=== PATIENT | female | born 1945 | race Caucasian/White ===

== ENCOUNTER 2021-05-24 14:45 | Inpatient (IN) ==
--- NOTE | 2021-05-24 15:39 | DR.GENAD ---
HPI Time Seen Time Seen by Provider: 05/24/21 15:30 PCP Primary Care Physician: KHLOE HPI Comment HPI Comment: Third ER visit after being diagnosed initially with "bronchitis" and covid pcr done in [place]; went back to [place] where diagnosis of "covid pn eumonia" made with CT two days ago and given omnicef, steroids, inhalers and pepcid and sent home where she has progressively worsened as below with confusion and sob; no abd pain, n/v/d. Complaint/Symptoms Chief Complaint:: PATIENT WAS BROUGHT TO ER FOR COVID WORSENING, INCREASED SOB. WAS SEEN IN ER 2 DAYS AGO IN [place]. WAS SEEN 1 WEEK AGO AND DX WITH COVID. COVID-19 Coronavirus risk:travel/contact w/high risk person: Yes Has patient experienced Coronavirus symptoms: Yes Coronavirus symptoms experienced: Shortness of Breath Mode of Arrival Mode of Arrival: Wheelchair Timing Onset of Chief Complaint: 05/17/21 PMH PMH Past Medical History: Yes Past Medical History: Coronary Artery Disease, Hypertension and Seizures Past Medical History Comment: ENLARGED HEART Past Surgical History: Yes Past Surgical History Comment: RIGHT FEMUR Travel Risk Coronavirus risk:travel/contact w/high risk person: Yes Has patient experienced Coronavirus symptoms: Yes Coronavirus symptoms experienced: Shortness of Breath Infectious screening In the last 2 months have you had wt loss of >10#?: NO Have you had fever, night sweats or hemotysis?: No Have you traveled outside the country in the last 6 months?: No Isolation: Droplet ROS Review of Systems Eyes: No Symptoms Reported ENTM: No Symptoms Reported Cardiovascular: No Symptoms Reported Gastrointestinal/Abdominal: No Symptoms Reported Genitourinary: No Symptoms Reported Musculoskeletal: No Symptoms Reported Integumentary: No Symptoms Reported Hematologic/Lymphatic: No Symptoms Reported Endocrine: No Symptoms Reported Psychiatric: No Symptoms Reported PE Vital Signs Vitals: Temperature 97.9 F Pulse Rate 88 Respiratory Rate 28 Blood Pressure 95/61 O2 Sat by Pulse Oximetry 94 General Limitations: No Limitations General Appearance: Alert and In No Apparent Distress Head Head Exam: Normal Inspection Eyes Eye exam: Normal Appearance Neck Neck Exam: Normal Inspection Chest Chest Inspection: Normal Inspection Respiratory Respiratory Exam: Normal Lung Sounds Bilat Respiratory Exam: Bilateral: Clear to Auscultation Cardiovascular Cardiovascular Exam: Regular Rate and Normal Rhythm Abdominal Exam Abdominal Exam: Normal Inspection, Normal Bowel Sounds and Soft Extremities Extremities Exam: Normal Inspection Back Back Exam: Normal Inspection Neurologic Neurological Exam: Other (somnolent, grunts with occasional monosyllabic answers) Skin Skin Exam: Warm, Dry, Intact and Normal Color MDM Differential Diagnosis Differential Diagnosis: covid pneu, pe, sepsis COURSE Treatment Treatment: advised pt she will be admitted; nurse called son Consultation Call Returned: 18:50 (Dr Rossi accepts admission.) ROR Labs Reviewed Laboratory Results Reviewed?: Yes Result Diagrams: 05/24/21 15:51 05/24/21 15:51 Laboratory: WBC 4.9 X10^3/uL (3.6-10.0) 05/24/21 15:51 RBC 5.06 X10^6/uL (3.5-5.4) 05/24/21 15:51 Hgb 15.7 g/dL (12.0-16.0) 05/24/21 15:51 Hct 44.9 % (36.0-47.0) 05/24/21 15:51 MCV 88.9 fL (80.0-100.0) 05/24/21 15:51 MCH 31.1 pg (27.0-34.0) 05/24/21 15:51 MCHC 35.0 g/dL (33.0-35.0) 05/24/21 15:51 RDW 13.2 % (11.6-16.5) 05/24/21 15:51 Plt Count 95 X10^3/uL (150.0-450.0) L 05/24/21 15:51 MPV 9.4 fL (7.4-11.0) 05/24/21 15:51 Neut % (Auto) 67.8 % (42.0-75.0) 05/24/21 15:51 Lymph % (Auto) 19.1 % (21.0-51.0) L 05/24/21 15:51 [place] % (Auto) 12.6 % (0.0-13.0) 05/24/21 15:51 Eos % (Auto) 0.0 % (0.9-2.9) L 05/24/21 15:51 Baso % (Auto) 0.5 % (0.2-1.0) 05/24/21 15:51 Neut # (Auto) 3.3 x10^3/uL (2.2-4.8) 05/24/21 15:51 Lymph # (Auto) 0.9 X10^3/uL (1.3-2.9) L 05/24/21 15:51 [place] # (Auto) 0.6 x10^3/uL (0.3-0.8) 05/24/21 15:51 Eos # (Auto) 0.0 x10^3/uL (0.0-0.2) 05/24/21 15:51 Baso # (Auto) 0.0 X10^3/uL (0.0-0.1) 05/24/21 15:51 Absolute Nucleated RBC 0.8 /100WBC 05/24/21 15:51 D-Dimer 1.92 ug/ml (0.0-0.57) H* 05/24/21 15:51 Sample Site Rra 05/24/21 16:05 ABG pH 7.500 (7.35-7.45) H 05/24/21 16:05 ABG pCO2 40.0 mmHg (35.0-45.0) 05/24/21 16:05 ABG pO2 47.0 mmHg (80.0-100.0) L* 05/24/21 16:05 ABG HCO3 31.2 mmol/L (22-26) H* 05/24/21 16:05 ABG O2 Saturation 87.0 % (90-100) L 05/24/21 16:05 ABG Base Excess 7.4 mmol/L (-2.0-2.0) H 05/24/21 16:05 Kane Test Pos 05/24/21 16:05 A-a Gradient 53.0 mmHg 05/24/21 16:05 FiO2 21.0 05/24/21 16:05 Blood Gas Comments Pt soila well eb 05/24/21 16:05 Sodium 134 mmol/L (136-145) L 05/24/21 15:51 Corrected Sodium 136 mmol/L (136-145) 05/24/21 15:51 Potassium 3.1 mmol/L (3.5-5.1) L 05/24/21 15:51 Chloride 96 mmol/L (98-107) L 05/24/21 15:51 Carbon Dioxide 29.0 mmol/L (21-32) 05/24/21 15:51 BUN 23 mg/dL (7-18) H 05/24/21 15:51 Creatinine 1.03 mg/dL (0.55-1.02) H 05/24/21 15:51 Est GFR (MDRD) Af Amer > 60 (>60) 05/24/21 15:51 Est GFR (MDRD) Non-Af 55 (>60) L 05/24/21 15:51 Glucose 166 mg/dL (65-99) H 05/24/21 15:51 Calcium 7.6 mg/dL (8.5-10.1) L 05/24/21 15:51 Corrected Calcium 8.4 mg/dL (8.5-10.1) L 05/24/21 15:51 Magnesium 1.9 mg/dL (1.7-2.9) 05/24/21 15:51 Ferritin 1286 ng/mL (8-252) H 05/24/21 15:51 Total Bilirubin 0.30 mg/dL (0.2-1.0) 05/24/21 15:51 AST 75 Units/L (15-37) H 05/24/21 15:51 ALT 51 Units/L (12-78) 05/24/21 15:51 Alkaline Phosphatase 83 Units/L (46-116) 05/24/21 15:51 C-Reactive Protein 72.00 mg/L (0-3.0) H 05/24/21 15:51 B-Natriuretic Peptide 95.6 pg/mL (0-79) H 05/24/21 15:51 Total Protein 6.6 g/dL (6.4-8.2) 05/24/21 15:51 Albumin 3.0 g/dL (3.4-5.0) L 05/24/21 15:51 Globulin 3.6 g/dL (2.5-4.5) 05/24/21 15:51 Albumin/Globulin Ratio 0.8 Ratio (1.1-2.1) L 05/24/21 15:51 SARS CoV-2 RNA Rapid TITA Positive (NEGATIVE) A 05/24/21 17:26 XRAY XRAY Interpreted by: Radiologist X-ray Results: pcxr: Findings are consistent with the given history of a COVID- 19 respiratory infection. No significant change when compared to the previous exam given differences in the technique. chest ct: Severe emphysematous changes with stable superimposed multifocal pneumonia. No acute pulmonary embolism. Opioid Opioid Risk Tool Age (Bucky box if 16-45): No History of Preadolescent Sexual Abuse: No Total: 0 Total Score Risk Category: Low Risk Copyright: [facility] predicting aberrant behaviors Diagnosis Discharge Problem: Hypoxia, Hypokalemia, COVID-19 Sepsis Qualifiers: Sepsis type: sepsis due to unspecified organism Sepsis acute organ dysfunction status: with acute organ dysfunction Severe sepsis acute organ dysfunction type: acute respiratory failure Acute respiratory failure type: with hypoxia Severe sepsis shock status: without septic shock Qualified Code(s): A41.9 - Sepsis, unspecified organism Bilateral pneumonia Qualifiers: Pneumonia type: due to unspecified organism Lung location: lower lobe of lung Qualified Code(s): J18.9 - Pneumonia, unspecified organism Instructions Forms: [facility] Social Distancing
[2021-05-24 15:58] LABS: BASOPHILS % (AUTO) 0.5 % (0.2-1.0); HEMATOCRIT 44.9 % (36.0-47.0); HEMOGLOBIN 15.7 g/dL (12.0-16.0); LYMPHOCYTES # (AUTO) 0.9 X10^3/uL (1.3-2.9); LYMPHOCYTES % (AUTO) 19.1 % (21.0-51.0); MEAN CORPUSCULAR HEMOGLOBIN 31.1 pg (27.0-34.0); MEAN CORPUSCULAR VOLUME 88.9 fL (80.0-100.0); MEAN PLATELET VOLUME 9.4 fL (7.4-11.0); MONOCYTES # (AUTO) 0.6 x10^3/uL (0.3-0.8); MONOCYTES % (AUTO) 12.6 % (0.0-13.0); NEUTROPHILS # (AUTO) 3.3 x10^3/uL (2.2-4.8); NEUTROPHILS % (AUTO) 67.8 % (42.0-75.0); PLATELET COUNT 95 X10^3/uL (150.0-450.0); RED BLOOD COUNT 5.06 X10^6/uL (3.5-5.4); RED CELL DISTRIBUTION WIDTH 13.2 % (11.6-16.5); WHITE BLOOD COUNT 4.9 X10^3/uL (3.6-10.0)
[2021-05-24] MEDS ORDERED: NS 1000 ML 1,000 ML IV ONE (16:00)
[2021-05-24 16:08] LABS: ABG BASE EXCESS 7.4 mmol/L (-2.0-2.0)
[2021-05-24 16:10] LABS: ABG ALLEN TEST POS; ABG HCO3 31.2 mmol/L (22-26)
[2021-05-24 16:11] LABS: ALANINE AMINOTRANSFERASE 51 Units/L (12-78); ALKALINE PHOSPHATASE 83 Units/L (46-116); ASPARTATE AMINO TRANSFERASE 75 Units/L (15-37); BLOOD UREA NITROGEN 23 mg/dL (7-18); CALCIUM 7.6 mg/dL (8.5-10.1); CHLORIDE 96 mmol/L (98-107); COR CA(FOR HYPOALB) 8.4 mg/dL (8.5-10.1); COR NA(FOR HYPERGLY) 136 mmol/L (136-145); CREATININE 1.03 mg/dL (0.55-1.02); SODIUM 134 mmol/L (136-145); TOTAL PROTEIN 6.6 g/dL (6.4-8.2); eGFR NON BLACK RACES 55 (>60)
--- NOTE | 2021-05-24 16:16 | RAD ---
HISTORYCOVID, SOBSTUDYCHEST, 1 VIEWCOMPARISONChest radiograph, May 22, 2021TECHNIQUEChest radiographic imaging, AP portable projection, 1 imageFINDINGSNo cardiomegaly.Hazy bilateral diffuse airspace opacities; right greater than left.No pleural effusion.No pneumothorax.No acute osseous abnormality.IMPRESSIONFindings are consistent with the given history of a COVID-19 respiratory infection. No significant change when compared to the previous exam given differences in the technique.Electronically signed by: Dmitriy Perrin (May 24, 2021 16:14:09)
[2021-05-24] MEDS ORDERED: NS 1000 ML 1,000 ML ONE ×2 (16:47→19:08)
[2021-05-24] MEDS ORDERED: K-DUR TAB 20 MEQ PO STA (17:11)
[2021-05-24] MEDS ORDERED: K-DUR TAB 20 MEQ PO ONE (17:19)
[2021-05-24] MEDS ORDERED: NS 100 ML IV 100 ML ONE (17:34)
--- NOTE | 2021-05-24 18:38 | CT ---
HISTORY:Hypoxia, COVID-19, elevated D-dimerStudy: CTA chestComparison:CTA chest 2 days priorTechnique: Multiple axial images of the chest were obtained after the administration of IV contrast. 3D reconstructions were performed utilizing radial maximum intensity projection imaging. Dose reduction techniques including Automated Exposure Control (AEC) and adjustment of mA and kV were utilized.Findings:Contrast opacification of the pulmonary arteries is adequate to the level of the segmental branches. No evidence of acute pulmonary emboli. There is scattered calcified plaque coronary arteries. Heart size is normal. No pericardial effusion. There is a small sliding hiatal hernia. The aorta appears normal in course and caliber. Advanced centrilobular and paraseptal emphysematous changes are present. There are superimposed ground-glass infiltrates in the right upper and lower lobes subpleural regions both lung bases compatible with pneumonia. Overall findings felt to be stable. No effusion or pneumothorax. Airways are patient.There are chronic degenerative changes bony thorax compression deformity T8. The visualized portions of the upper abdomen are grossly unremarkable.IMPRESSION:Severe emphysematous changes with stable superimposed multifocal pneumonia.No acute pulmonary embolism.Electronically signed by: BRITTNEY STANLEY (May 24, 2021 18:36:48)
[2021-05-24] MEDS ORDERED: ZOSYN VIAL 3.375 GRAMS 3.375 G in NS 100 ML IV + SPIKE MINIBAG* 100 ML IV ONE (18:43)
[2021-05-24] MEDS ORDERED: SOLU-Medrol 125 MG VIAL IVP ONE (18:43)
[2021-05-24] MEDS ORDERED: SOLU-Medrol 125 MG VIAL ONE (19:01)
[2021-05-24] MEDS ORDERED: ZOSYN VIAL 3.375 GRAMS IV ONE (19:02)
[2021-05-24] MEDS ORDERED: NS 100 ML IV + SPIKE MINIBAG* 100 ML IV ONE (19:02)
[2021-05-24] MEDS: NS 1000 ML 1,000 ML IV SCH (19:10)
[2021-05-24] MEDS ORDERED: ZOFRAN INJ 4 MG VIAL IVP PRN (19:38)
[2021-05-24] MEDS ORDERED: TESSALON PERLES PO PRN (19:38)
[2021-05-24] MEDS ORDERED: TYLENOL 500 MG TAB EXTRA STRENGTH PO PRN ×2 (19:38→20:43)
[2021-05-24] MEDS ORDERED: ZOSYN VIAL 3.375 GRAMS 3.375 G in NS 100 ML IV + SPIKE MINIBAG* 100 ML IV SCH (19:39)
[2021-05-24] MEDS ORDERED: NS 1000 ML 1,000 ML IV SCH (20:00)
[2021-05-24] MEDS: BROVANA IN SCH (21:00)
[2021-05-24] MEDS: PULMICORT NEB TX 0.5 MG NEB SCH (21:00)
[2021-05-24] MEDS ORDERED: MELATONIN PO SCH (21:00)
[2021-05-24] MEDS: MELATONIN PO SCH (22:19)
[2021-05-24] MEDS: NORCURON INJ 10 MG VIAL 50 MG in NS 50 ML IV 50 ML IV PRN (23:00)
[2021-05-25] MEDS: TESSALON PERLES PO PRN ×2 (01:26→20:08)
[2021-05-25] MEDS: NYSTATIN POWDER TOP SCH ×3 (05:20→21:02)
[2021-05-25] MEDS: ZOSYN VIAL 3.375 GRAMS 3.375 G in NS 100 ML IV + SPIKE MINIBAG* 100 ML IV SCH ×3 (05:20→21:02)
[2021-05-25] MEDS: NS 1000 ML 1,000 ML IV SCH ×4 (06:20→20:07)
[2021-05-25] MEDS: PULMICORT NEB TX 0.5 MG NEB SCH ×2 (08:53→21:50)
[2021-05-25] MEDS: BROVANA IN SCH ×2 (08:53→21:50)
[2021-05-25] MEDS ORDERED: SOLU-Medrol 125 MG VIAL IVP SCH ×2 (09:00)
[2021-05-25] MEDS ORDERED: POTASSIUM CHL 60 MEQ/NS 0.45% 500 ML IV PRN (10:22)
[2021-05-25] MEDS ORDERED: K-DUR TAB 20 MEQ PO PRN (10:22)
[2021-05-25] MEDS ORDERED: POTASSIUM CHL 40 MEQ/NS 0.45% 500 ML IV PRN (10:22)
[2021-05-25] MEDS ORDERED: POTASSIUM CHLORIDE LIQ 20 MEQ UDC PO PRN (10:22)
[2021-05-25] MEDS ORDERED: MICRO K EXTEN CAP 10 MEQ PO PRN (10:22)
[2021-05-25] MEDS ORDERED: KLOR-CON PO PRN (10:22)
[2021-05-25] MEDS: BUTT CREAM (COMPOUND) TOP SCH ×2 (17:18→21:01)
[2021-05-25] MEDS: MAGNESIUM SULFATE 1 GRAM/100 mL PREMIX 1 GM/100 ML BAG IV PRN ×2 (17:37→18:52)
[2021-05-25] MEDS: LOVENOX INJ 30 MG SYR SC SCH (18:03)
[2021-05-25] MEDS: MELATONIN PO SCH (20:07)
--- NOTE | 2021-05-25 23:29 | DR.H&P ---
H&P History & Physical for Day of: H&P Date: 05/25/21 Allergies Allergies Allergy/AdvReac Type Severity Reaction Status Date / Time No Known Drug Allergies Allergy Unverified 05/24/21 15:36 History of Present Illness History of Present Illness: Pt is a 76 year old female with a past medical history of Hypertension, Seizures, CAD, presenting after being tested positive for COVID-19 in [place]. Pt was started outpatient on omnicef, steroids, inhalers, and pepcid. She reports for the past 2-3 days her symptoms of s hortness of breath have progressively worsened. In the ED she was found to be significantly hypoxic. Labs/imaging: Wbc 4.9, Hgb 15.7, Plt 95, Na 134, K 3.1, Creatinine 1.03, Glucose 166, CRP 72, BNP 95, COVID positive, D-dimer:1.92, ABG: pH 7.5, pCO2 40, pO2 47, HCO3 31, O2 sat 87% on RA. CXR: Findings are consistent with the given history of a COVID-19 respiratory infection. No significant change when compared to the previous exam given differences in the technique. CTA was obtained due to elevated D-dimer that revealed: Severe emphysematous changes with stable superimposed multifocal pneumonia. No acute pulmonary embolism. Pt was started on pneumonia protocol that includes: IVF NS@75ml/h, Remdesivir, Solumedrol 125mg q6h, scheduled Bronchodilators, Antibiotics: Zosyn, immune supporting supplements, supplemental O2, SSI, I/S, Respiratory therapy consult, Pneumonia protocol. Pt is currently utilizing 4L nasal cannula supplemental oxygen. Will restart home medications and wean/titrate supplemental oxygen as tolerated. Continue to closely monitor and follow up labs/imaging. Time spent on clinical assessment, reviewing labs and imaging, decision making, and documentation greater than 45 minutes. Past Medical History Past Medical History: Coronary Artery Disease, Hypertension and Seizures Past Surgical History Surgical History: Ortho Surgery Social History Alcohol Use: None Drug Use: None Medications Home Medications: No Known Drug Allergies Allergy (Unverified 05/24/21 15:36) CONTINUE taking the following medications amlodipine [Norvasc] 10 mg PO HS 05/24/21 [History] ascorbic acid (vitamin C) [Vitamin C] 250 mg PO DAILY 05/24/21 [History] aspirin [Ecotrin] 325 mg PO BID 05/24/21 [History] cholecalciferol (vitamin D3) [Vitamin D3] 125 mcg PO DAILY 05/24/21 [History] cyanocobalamin (vitamin B-12) [Vitamin B-12] 500 mcg PO DAILY 05/24/21 [History] famotidine [Pepcid] 40 mg PO BID 05/24/21 [History] hydrochlorothiazide 25 mg PO QAM 05/24/21 [History] meclizine 25 mg PO BID 05/24/21 [History] phenytoin sodium extended [Dilantin Extended] 300 mg PO QHS 05/24/21 [History] zinc sulfate 50 mg PO BID 05/24/21 [History] Labs Result Diagrams: 05/24/21 15:51 05/25/21 13:00 Labs: Laboratory WBC 4.9 X10^3/uL (3.6-10.0) 05/24/21 15:51 RBC 5.06 X10^6/uL (3.5-5.4) 05/24/21 15:51 Hgb 15.7 g/dL (12.0-16.0) 05/24/21 15:51 Hct 44.9 % (36.0-47.0) 05/24/21 15:51 MCV 88.9 fL (80.0-100.0) 05/24/21 15:51 MCH 31.1 pg (27.0-34.0) 05/24/21 15:51 MCHC 35.0 g/dL (33.0-35.0) 05/24/21 15:51 RDW 13.2 % (11.6-16.5) 05/24/21 15:51 Plt Count 95 X10^3/uL (150.0-450.0) L 05/24/21 15:51 MPV 9.4 fL (7.4-11.0) 05/24/21 15:51 Neut % (Auto) 67.8 % (42.0-75.0) 05/24/21 15:51 Lymph % (Auto) 19.1 % (21.0-51.0) L 05/24/21 15:51 [place] % (Auto) 12.6 % (0.0-13.0) 05/24/21 15:51 Eos % (Auto) 0.0 % (0.9-2.9) L 05/24/21 15:51 Baso % (Auto) 0.5 % (0.2-1.0) 05/24/21 15:51 Neut # (Auto) 3.3 x10^3/uL (2.2-4.8) 05/24/21 15:51 Lymph # (Auto) 0.9 X10^3/uL (1.3-2.9) L 05/24/21 15:51 [place] # (Auto) 0.6 x10^3/uL (0.3-0.8) 05/24/21 15:51 Eos # (Auto) 0.0 x10^3/uL (0.0-0.2) 05/24/21 15:51 Baso # (Auto) 0.0 X10^3/uL (0.0-0.1) 05/24/21 15:51 Absolute Nucleated RBC 0.8 /100WBC 05/24/21 15:51 D-Dimer 1.92 ug/ml (0.0-0.57) H* 05/24/21 15:51 Sample Site Rra 05/24/21 16:05 ABG pH 7.500 (7.35-7.45) H 05/24/21 16:05 ABG pCO2 40.0 mmHg (35.0-45.0) 05/24/21 16:05 ABG pO2 47.0 mmHg (80.0-100.0) L* 05/24/21 16:05 ABG HCO3 31.2 mmol/L (22-26) H* 05/24/21 16:05 ABG O2 Saturation 87.0 % (90-100) L 05/24/21 16:05 ABG Base Excess 7.4 mmol/L (-2.0-2.0) H 05/24/21 16:05 Kane Test Pos 05/24/21 16:05 A-a Gradient 53.0 mmHg 05/24/21 16:05 FiO2 21.0 05/24/21 16:05 Blood Gas Comments Pt soila well eb 05/24/21 16:05 Sodium 134 mmol/L (136-145) L 05/24/21 15:51 Corrected Sodium 136 mmol/L (136-145) 05/24/21 15:51 Potassium 3.9 mmol/L (3.5-5.1) 05/25/21 13:00 Chloride 96 mmol/L (98-107) L 05/24/21 15:51 Carbon Dioxide 29.0 mmol/L (21-32) 05/24/21 15:51 BUN 23 mg/dL (7-18) H 05/24/21 15:51 Creatinine 1.03 mg/dL (0.55-1.02) H 05/24/21 15:51 Est GFR (MDRD) Af Amer > 60 (>60) 05/24/21 15:51 Est GFR (MDRD) Non-Af 55 (>60) L 05/24/21 15:51 Glucose 166 mg/dL (65-99) H 05/24/21 15:51 Calcium 7.6 mg/dL (8.5-10.1) L 05/24/21 15:51 Corrected Calcium 8.4 mg/dL (8.5-10.1) L 05/24/21 15:51 Magnesium 1.6 mg/dL (1.7-2.9) L 05/25/21 10:50 Ferritin 1286 ng/mL (8-252) H 05/24/21 15:51 Total Bilirubin 0.30 mg/dL (0.2-1.0) 05/24/21 15:51 AST 75 Units/L (15-37) H 05/24/21 15:51 ALT 51 Units/L (12-78) 05/24/21 15:51 Alkaline Phosphatase 83 Units/L (46-116) 05/24/21 15:51 C-Reactive Protein 72.00 mg/L (0-3.0) H 05/24/21 15:51 B-Natriuretic Peptide 95.6 pg/mL (0-79) H 05/24/21 15:51 Total Protein 6.6 g/dL (6.4-8.2) 05/24/21 15:51 Albumin 3.0 g/dL (3.4-5.0) L 05/24/21 15:51 Globulin 3.6 g/dL (2.5-4.5) 05/24/21 15:51 Albumin/Globulin Ratio 0.8 Ratio (1.1-2.1) L 05/24/21 15:51 SARS CoV-2 RNA Rapid TITA Positive (NEGATIVE) A 05/24/21 17:26 Review of Systems Constitutional: Chills and Weakness Eyes: No Symptoms Reported ENT: No Symptoms Reported Respiratory: Cough and Shortness of Breath Cardiovascular: No Symptoms Reported Gastrointestinal: No Symptoms Reported Genitourinary: No Symptoms Reported Musculoskeletal: No Symptoms Reported Skin: No Symptoms Reported Neurological: No Symptoms Reported Physical Exam Vital Signs: Temperature 99.4 F Pulse Rate [Apical] 93 Pulse Rate 87 Respiratory Rate 22 Blood Pressure [Left Arm] 141/65 Blood Pressure 95/61 O2 Sat by Pulse Oximetry 90 Oriented: Normal Eyes: Normal Ear: Normal Nose: Normal Throat: Normal Respiratory: Diminished Throughout, Rhonchi Throughout and Rales Throughout Cardiovascular: Normal : Normal Auscultation: Bowel Sounds: Normal Palpation: Normal Tenderness: Normal Skin: Normal Musculoskeletal: Normal Psychiatric: Normal Mood Description: Calm and Appropriate Affect: Normal Speech Pattern: Clear and Appropriate Assessment/Plan (1) Pneumonia due to COVID-19 virus: Status: Acute Plan: -pneumonia protocol Review H&P Reviewed: Yes Patient was examined?: Yes
[2021-05-25] MEDS: ROBITUSSIN DM PO PRN (23:45)
[2021-05-26] MEDS: SOLU-Medrol 125 MG VIAL IVP SCH ×4 (02:14→20:43)
[2021-05-26] MEDS: BUTT CREAM (COMPOUND) TOP SCH ×3 (05:07→22:25)
[2021-05-26] MEDS: ZOSYN VIAL 3.375 GRAMS 3.375 G in NS 100 ML IV + SPIKE MINIBAG* 100 ML IV SCH ×3 (05:07→21:03)
[2021-05-26] MEDS: NS 1000 ML 1,000 ML IV SCH ×3 (05:07→20:45)
[2021-05-26] MEDS: NYSTATIN POWDER TOP SCH ×3 (05:07→21:02)
[2021-05-26] MEDS: TESSALON PERLES PO PRN ×3 (05:08→20:44)
[2021-05-26 06:21] LABS: BASOPHILS % (AUTO) 0.1 % (0.2-1.0); HEMATOCRIT 38.3 % (36.0-47.0); LYMPHOCYTES # (AUTO) 0.5 X10^3/uL (1.3-2.9); LYMPHOCYTES % (AUTO) 7.4 % (21.0-51.0); MEAN CORPUSCULAR HEMOGLOBIN 30.4 pg (27.0-34.0); MEAN CORPUSCULAR VOLUME 89.5 fL (80.0-100.0); MEAN PLATELET VOLUME 9.8 fL (7.4-11.0); MONOCYTES # (AUTO) 0.4 x10^3/uL (0.3-0.8); MONOCYTES % (AUTO) 6.4 % (0.0-13.0); NEUTROPHILS # (AUTO) 5.4 x10^3/uL (2.2-4.8); NEUTROPHILS % (AUTO) 86.1 % (42.0-75.0); PLATELET COUNT 102 X10^3/uL (150.0-450.0); RED BLOOD COUNT 4.28 X10^6/uL (3.5-5.4); RED CELL DISTRIBUTION WIDTH 13.1 % (11.6-16.5); WHITE BLOOD COUNT 6.3 X10^3/uL (3.6-10.0)
[2021-05-26 06:46] LABS: ALANINE AMINOTRANSFERASE 33 Units/L (12-78); ALBUMIN 2.2 g/dL (3.4-5.0); ALKALINE PHOSPHATASE 59 Units/L (46-116); ASPARTATE AMINO TRANSFERASE 53 Units/L (15-37); BLOOD UREA NITROGEN 12 mg/dL (7-18); CALCIUM 7.1 mg/dL (8.5-10.1); CARBON DIOXIDE 25.9 mmol/L (21-32); CHLORIDE 104 mmol/L (98-107); COR CA(FOR HYPOALB) 8.5 mg/dL (8.5-10.1); COR NA(FOR HYPERGLY) 137 mmol/L (136-145); CREATININE 0.74 mg/dL (0.55-1.02); SODIUM 136 mmol/L (136-145); TOTAL PROTEIN 5.3 g/dL (6.4-8.2); eGFR NON BLACK RACES > 60 (>60)
--- NOTE | 2021-05-26 07:58 | RAD ---
HISTORYPneumoniaSTUDYPortable AP [id number] NGSContinued normal heart size. Interval increase in diffuse interstitial and airspace pulmonary densities. There is no evidence for significant pleural effusion or pneumothorax.IMPRESSIONInterval progression of bilateral pneumonia.Electronically signed by: ANDREW MARTINEZ (May 26, 2021 07:57:02)
[2021-05-26] MEDS: PULMICORT NEB TX 0.5 MG NEB SCH ×2 (08:37→20:40)
[2021-05-26] MEDS: BROVANA IN SCH ×2 (08:37→20:40)
[2021-05-26] MEDS: LOVENOX INJ 30 MG SYR SC SCH ×2 (10:30→20:43)
[2021-05-26] MEDS: DILANTIN CAP 100 MG EXT REL PO SCH (10:43)
[2021-05-26] MEDS: ROBITUSSIN DM PO PRN ×3 (10:44→20:43)
[2021-05-26] MEDS ORDERED: NORVASC TAB 10 MG ONE (19:11)
[2021-05-26] MEDS ORDERED: ECOTRIN TAB 325 MG PO ONE (19:11)
[2021-05-26] MEDS ORDERED: PEPCID TAB 40 MG ONE (19:11)
[2021-05-26] MEDS: MELATONIN PO SCH (20:43)
[2021-05-26] MEDS: NORVASC TAB 10 MG PO SCH (20:44)
[2021-05-26] MEDS: ECOTRIN TAB 325 MG PO SCH (20:44)
[2021-05-26] MEDS: PEPCID TAB 40 MG PO SCH (20:44)
--- NOTE | 2021-05-26 22:21 | PCM.PROG ---
Progress Note Progress Note for Day of Date of Exam: 05/26/21 Subjective Subjective: Pt is a 76 year old female with a past medical history of Hypertension, Seizures, CAD, admitted for COVID-19 pneumonia with hypoxia. This morning patient reports worsening of her respiratory symptoms. No acute events overnight. She is currently utilizing heated high flow oxygen with FiO2 86%. Labs/imaging: Wbc 6.3, Hgb 13, Plt 102, Na 136, K 3.8, Creatinine 0.74, Glucose 141, CRP 75. CXR: Interval progression of bilateral pneumonia. Pt is currently on pneumonia protocol that includes: IVF NS@KVO, Remdesivir, Solumedrol 125mg q6h, scheduled Bronchodilators, Antibiotics: Zosyn, immune supporting supplements, supplemental O2, SSI, I/S, Respiratory therapy consult, Pneumonia protocol. Pt had fever overnight, order blood cultures. She has also been complaining of cough, add tussionex. Continue to wean/titrate supplemental oxygen as tolerated. Continue to closely monitor and follow up labs/imaging. Time spent on clinical assessment, reviewing labs and imaging, decision making, and documentation greater than 45 minutes. Past Medical Family Social History Past Med/Fam/Surg Hx: No changes since H&P Allergies: Allergies No Known Drug Allergies Allergy (Unverified 05/24/21 15:36) Review of Systems ROS: No change since H&P Vital Signs and I&O's Vital Signs: Temperature 98.3 F Pulse Rate [Apical] 79 Pulse Rate 63 Respiratory Rate 24 Blood Pressure [Left Arm] 128/58 Blood Pressure 95/61 O2 Sat by Pulse Oximetry 89 Intake and Output: Intake & Output 05/23/21 05/24/21 05/25/21 05/26/21 23:59 23:59 23:59 23:59 Intake Total 640 / 640 2526 / 2526 1106 / 1106 Balance 640 / 640 2526 / 2526 1106 / 1106 Physical Exam Oriented: Normal Eyes: Normal Ear: Normal Nose: Normal Throat: Normal Respiratory: Diminished and Rales Cardiovascular: Normal : Normal Auscultation: Bowel Sounds: Normal Tenderness: Normal Skin: Normal Musculoskeletal: Normal Psychiatric: Normal Mood Description: Calm and Appropriate Affect: Normal Speech Pattern: Clear and Appropriate Laboratory and Diagnostics Result Diagrams: 05/26/21 05:50 05/26/21 05:50 Labs: Laboratory WBC 6.3 X10^3/uL (3.6-10.0) 05/26/21 05:50 RBC 4.28 X10^6/uL (3.5-5.4) 05/26/21 05:50 Hgb 13.0 g/dL (12.0-16.0) D 05/26/21 05:50 Hct 38.3 % (36.0-47.0) 05/26/21 05:50 MCV 89.5 fL (80.0-100.0) 05/26/21 05:50 MCH 30.4 pg (27.0-34.0) 05/26/21 05:50 MCHC 34.0 g/dL (33.0-35.0) 05/26/21 05:50 RDW 13.1 % (11.6-16.5) 05/26/21 05:50 Plt Count 102 X10^3/uL (150.0-450.0) L 05/26/21 05:50 MPV 9.8 fL (7.4-11.0) 05/26/21 05:50 Neut % (Auto) 86.1 % (42.0-75.0) H 05/26/21 05:50 Lymph % (Auto) 7.4 % (21.0-51.0) L 05/26/21 05:50 [place] % (Auto) 6.4 % (0.0-13.0) 05/26/21 05:50 Eos % (Auto) 0.0 % (0.9-2.9) L 05/26/21 05:50 Baso % (Auto) 0.1 % (0.2-1.0) L 05/26/21 05:50 Neut # (Auto) 5.4 x10^3/uL (2.2-4.8) H 05/26/21 05:50 Lymph # (Auto) 0.5 X10^3/uL (1.3-2.9) L 05/26/21 05:50 [place] # (Auto) 0.4 x10^3/uL (0.3-0.8) 05/26/21 05:50 Eos # (Auto) 0.0 x10^3/uL (0.0-0.2) 05/26/21 05:50 Baso # (Auto) 0.0 X10^3/uL (0.0-0.1) 05/26/21 05:50 Absolute Nucleated RBC 0.1 /100WBC 05/26/21 05:50 D-Dimer 1.92 ug/ml (0.0-0.57) H* 05/24/21 15:51 Sample Site Rra 05/24/21 16:05 ABG pH 7.500 (7.35-7.45) H 05/24/21 16:05 ABG pCO2 40.0 mmHg (35.0-45.0) 05/24/21 16:05 ABG pO2 47.0 mmHg (80.0-100.0) L* 05/24/21 16:05 ABG HCO3 31.2 mmol/L (22-26) H* 05/24/21 16:05 ABG O2 Saturation 87.0 % (90-100) L 05/24/21 16:05 ABG Base Excess 7.4 mmol/L (-2.0-2.0) H 05/24/21 16:05 Kane Test Pos 05/24/21 16:05 A-a Gradient 53.0 mmHg 05/24/21 16:05 FiO2 21.0 05/24/21 16:05 Blood Gas Comments Pt soila well eb 05/24/21 16:05 Sodium 136 mmol/L (136-145) 05/26/21 05:50 Corrected Sodium 137 mmol/L (136-145) 05/26/21 05:50 Potassium 3.8 mmol/L (3.5-5.1) 05/26/21 05:50 Chloride 104 mmol/L (98-107) 05/26/21 05:50 Carbon Dioxide 25.9 mmol/L (21-32) 05/26/21 05:50 BUN 12 mg/dL (7-18) 05/26/21 05:50 Creatinine 0.74 mg/dL (0.55-1.02) 05/26/21 05:50 Est GFR (MDRD) Af Amer > 60 (>60) 05/26/21 05:50 Est GFR (MDRD) Non-Af > 60 (>60) 05/26/21 05:50 Glucose 141 mg/dL (65-99) H 05/26/21 05:50 Calcium 7.1 mg/dL (8.5-10.1) L 05/26/21 05:50 Corrected Calcium 8.5 mg/dL (8.5-10.1) 05/26/21 05:50 Magnesium 2.0 mg/dL (1.7-2.9) 05/26/21 05:50 Ferritin 1286 ng/mL (8-252) H 05/24/21 15:51 Total Bilirubin 0.30 mg/dL (0.2-1.0) 05/26/21 05:50 AST 53 Units/L (15-37) H 05/26/21 05:50 ALT 33 Units/L (12-78) 05/26/21 05:50 Alkaline Phosphatase 59 Units/L (46-116) 05/26/21 05:50 C-Reactive Protein 75.60 mg/L (0-3.0) H 05/26/21 05:50 B-Natriuretic Peptide 95.6 pg/mL (0-79) H 05/24/21 15:51 Total Protein 5.3 g/dL (6.4-8.2) L 05/26/21 05:50 Albumin 2.2 g/dL (3.4-5.0) L 05/26/21 05:50 Globulin 3.1 g/dL (2.5-4.5) 05/26/21 05:50 Albumin/Globulin Ratio 0.7 Ratio (1.1-2.1) L 05/26/21 05:50 SARS CoV-2 RNA Rapid TITA Positive (NEGATIVE) A 05/24/21 17:26 Plan (1) Pneumonia due to COVID-19 virus: Status: Acute Plan: -pneumonia protocol
[2021-05-26] MEDS: TUSSIONEX PENNKINETIC SUSP PO PRN (23:23)
[2021-05-27] MEDS: SOLU-Medrol 125 MG VIAL IVP SCH ×4 (02:02→20:19)
[2021-05-27] MEDS: ROBITUSSIN DM PO PRN ×2 (02:10→20:20)
[2021-05-27] MEDS: TESSALON PERLES PO PRN ×2 (05:12→20:18)
[2021-05-27] MEDS: NYSTATIN POWDER TOP SCH ×3 (05:12→21:59)
[2021-05-27] MEDS: BUTT CREAM (COMPOUND) TOP SCH ×3 (05:12→21:59)
[2021-05-27] MEDS: ZOSYN VIAL 3.375 GRAMS 3.375 G in NS 100 ML IV + SPIKE MINIBAG* 100 ML IV SCH ×3 (05:12→22:00)
[2021-05-27] MEDS: NS 1000 ML 1,000 ML IV SCH ×3 (05:12→20:19)
[2021-05-27 06:23] LABS: BASOPHILS % (AUTO) 0.2 % (0.2-1.0); HEMATOCRIT 38.7 % (36.0-47.0); HEMOGLOBIN 13.4 g/dL (12.0-16.0); LYMPHOCYTES # (AUTO) 0.5 X10^3/uL (1.3-2.9); LYMPHOCYTES % (AUTO) 7.6 % (21.0-51.0); MEAN CORPUSCULAR HEMOGLOBIN 30.7 pg (27.0-34.0); MEAN CORPUSCULAR HGB CONC 34.6 g/dL (33.0-35.0); MEAN CORPUSCULAR VOLUME 88.8 fL (80.0-100.0); MONOCYTES # (AUTO) 0.5 x10^3/uL (0.3-0.8); MONOCYTES % (AUTO) 6.8 % (0.0-13.0); NEUTROPHILS # (AUTO) 5.6 x10^3/uL (2.2-4.8); NEUTROPHILS % (AUTO) 85.4 % (42.0-75.0); PLATELET COUNT 128 X10^3/uL (150.0-450.0); RED BLOOD COUNT 4.36 X10^6/uL (3.5-5.4); RED CELL DISTRIBUTION WIDTH 13.2 % (11.6-16.5); WHITE BLOOD COUNT 6.6 X10^3/uL (3.6-10.0)
[2021-05-27 06:43] LABS: ALANINE AMINOTRANSFERASE 31 Units/L (12-78); ALBUMIN 2.1 g/dL (3.4-5.0); ALKALINE PHOSPHATASE 58 Units/L (46-116); ASPARTATE AMINO TRANSFERASE 43 Units/L (15-37); BLOOD UREA NITROGEN 12 mg/dL (7-18); CALCIUM 7.7 mg/dL (8.5-10.1); CHLORIDE 103 mmol/L (98-107); COR CA(FOR HYPOALB) 9.2 mg/dL (8.5-10.1); COR NA(FOR HYPERGLY) 139 mmol/L (136-145); CREATININE 0.62 mg/dL (0.55-1.02); SODIUM 137 mmol/L (136-145); TOTAL PROTEIN 5.6 g/dL (6.4-8.2); eGFR NON BLACK RACES > 60 (>60)
--- NOTE | 2021-05-27 07:44 | RAD ---
HISTORYPNEUMONIA F/USTUDYCHEST, 1 [id number] opacity in the lungs probably represents pneumonia. This morillo s progressed since the prior study, particularly in the left lung.No pleural effusion or pneumothorax .The heart size is magnified.Pleural opacity in the left chest could be a small effusion. This is unc hanged.IMPRESSION1. Progressed pneumonia2. Left pleural effusion, unchanged3.Electronically signed by : Luciano Perez (May 27, 2021 07:42:36)
[2021-05-27] MEDS ORDERED: LASIX IVP ONE (08:02)
[2021-05-27] MEDS: BROVANA IN SCH ×2 (08:48→20:00)
[2021-05-27] MEDS: PULMICORT NEB TX 0.5 MG NEB SCH ×2 (08:48→20:00)
[2021-05-27] MEDS: LOVENOX INJ 30 MG SYR SC SCH ×2 (09:20→20:17)
[2021-05-27] MEDS: DILANTIN CAP 100 MG EXT REL PO SCH (09:23)
[2021-05-27] MEDS: ECOTRIN TAB 325 MG PO SCH ×2 (09:23→20:19)
[2021-05-27] MEDS: PEPCID TAB 40 MG PO SCH ×2 (09:24→20:16)
[2021-05-27 10:16] LABS: BILIRUBIN,URINE NEGATIVE (NEGATIVE); BLOOD/HEMOGLOBIN,URINE 2+ (NEGATIVE); GLUCOSE, URINE 3+ (NEGATIVE); KETONES,URINE NEGATIVE (NEGATIVE); LEUKOCYTE ESTERASE ,URINE NEGATIVE (NEGATIVE); NITRITES,URINE NEGATIVE (NEGATIVE); PROTEIN,URINE 2+ (NEGATIVE); UROBILINOGEN,URINE NORMAL (NORMAL)
[2021-05-27 10:30] LABS: APPEARANCE,URINE CLEAR (CLEAR); BACTERIA,URINE TRACE /HPF (NEGATIVE); COLOR,URINE YELLOW (YELLOW); HYALINE CASTS, URINE FEW /LPF (NEGATIVE); RBC,URINE 0-2 /HPF (0-3); SQUAMOUS EPITHELIAL CELL,UR FEW /HPF (NEGATIVE)
[2021-05-27] MEDS: K-RIDER 10 MEQ/NS 100 ML 10 MEQ/100 ML BAG IV PRN ×2 (11:21→12:32)
[2021-05-27] MEDS ORDERED: REMDESIVIR 200 MG in NS 250 ML IV 250 ML IV NR (15:00)
[2021-05-27] MEDS: MELATONIN PO SCH (20:17)
[2021-05-27] MEDS: NORVASC TAB 10 MG PO SCH (20:18)
[2021-05-27] MEDS ORDERED: TESSALON PERLES PO PRN (20:36)
--- NOTE | 2021-05-27 20:40 | PCM.PROG ---
Progress Note Progress Note for Day of Date of Exam: 05/27/21 Subjective Subjective: Pt is a 76 year old female with a past medical history of Hypertension, Seizures, CAD, admitted for COVID-19 pneumonia with hypoxia. This morning patient respiratory status continues to worsen. She still has significant shortness of breath and cough. She is currently utilizing heated high flow oxygen with FiO2 95%. Labs/imaging: Wbc 6.6, Hgb 13.4, Plt 128, Na 137, K 3.5, Creatinine 0.62, Glucose 178, CRP 75>79. Urine culture pending. CXR: Bilateral opacity in the lungs probably represents pneumonia. This has progressed since the prior study, particularly in the left lung. Pleural opacity in the left chest could be a small effusion. This is unchanged. Pt is currently on pneumonia protocol that includes: IVF NS@KVO, Remdesivir, Solumedrol 125mg q6h, scheduled Bronchodilators, Antibiotics: Zosyn, Tussionex BID, immune supporting supplements, supplemental O2, SSI, I/S, Respiratory therapy consult, Pneumonia protocol. She still complaining of cough, add tessalon perrles. Will order IV lasix 40mg x1 for pleural effusion. Continue to wean/titrate supplemental oxygen as tolerated. Continue to closely monitor and follow up labs/imaging. Time spent on clinical assessment, reviewing labs and imaging, decision making, and documentation greater than 45 minutes. Past Medical Family Social History Past Med/Fam/Surg Hx: No changes since H&P Allergies: Allergies No Known Drug Allergies Allergy (Unverified 05/24/21 15:36) Review of Systems ROS: No change since H&P Vital Signs and I&O's Vital Signs: Temperature 97.8 F Pulse Rate [Apical] 79 Pulse Rate 78 Respiratory Rate 25 Blood Pressure [Left Arm] 126/61 Blood Pressure 95/61 O2 Sat by Pulse Oximetry 91 Intake and Output: Intake & Output 05/24/21 05/25/21 05/26/21 05/27/21 23:59 23:59 23:59 23:59 Intake Total 640 / 640 2526 / 2526 214 / 2145 828 / 828 Output Total 800 / 800 Balance 640 / 640 2526 / 2526 2146 / 6 Physical Exam Oriented: Normal Eyes: Normal Ear: Normal Nose: Normal Throat: Normal Respiratory: Diminished and Rales Cardiovascular: Normal : Normal Auscultation: Bowel Sounds: Normal Tenderness: Normal Skin: Normal Musculoskeletal: Normal Psychiatric: Normal Mood Description: Calm and Appropriate Affect: Normal Speech Pattern: Clear and Appropriate Laboratory and Diagnostics Result Diagrams: 05/27/21 05:20 05/27/21 05:20 Labs: Laboratory WBC 6.6 X10^3/uL (3.6-10.0) 05/27/21 05:20 RBC 4.36 X10^6/uL (3.5-5.4) 05/27/21 05:20 Hgb 13.4 g/dL (12.0-16.0) 05/27/21 05:20 Hct 38.7 % (36.0-47.0) 05/27/21 05:20 MCV 88.8 fL (80.0-100.0) 05/27/21 05:20 MCH 30.7 pg (27.0-34.0) 05/27/21 05:20 MCHC 34.6 g/dL (33.0-35.0) 05/27/21 05:20 RDW 13.2 % (11.6-16.5) 05/27/21 05:20 Plt Count 128 X10^3/uL (150.0-450.0) L 05/27/21 05:20 MPV 10.0 fL (7.4-11.0) 05/27/21 05:20 Neut % (Auto) 85.4 % (42.0-75.0) H 05/27/21 05:20 Lymph % (Auto) 7.6 % (21.0-51.0) L 05/27/21 05:20 [place] % (Auto) 6.8 % (0.0-13.0) 05/27/21 05:20 Eos % (Auto) 0.0 % (0.9-2.9) L 05/27/21 05:20 Baso % (Auto) 0.2 % (0.2-1.0) 05/27/21 05:20 Neut # (Auto) 5.6 x10^3/uL (2.2-4.8) H 05/27/21 05:20 Lymph # (Auto) 0.5 X10^3/uL (1.3-2.9) L 05/27/21 05:20 [place] # (Auto) 0.5 x10^3/uL (0.3-0.8) 05/27/21 05:20 Eos # (Auto) 0.0 x10^3/uL (0.0-0.2) 05/27/21 05:20 Baso # (Auto) 0.0 X10^3/uL (0.0-0.1) 05/27/21 05:20 Absolute Nucleated RBC 0.0 /100WBC 05/27/21 05:20 D-Dimer 1.92 ug/ml (0.0-0.57) H* 05/24/21 15:51 Sample Site Rra 05/24/21 16:05 ABG pH 7.500 (7.35-7.45) H 05/24/21 16:05 ABG pCO2 40.0 mmHg (35.0-45.0) 05/24/21 16:05 ABG pO2 47.0 mmHg (80.0-100.0) L* 05/24/21 16:05 ABG HCO3 31.2 mmol/L (22-26) H* 05/24/21 16:05 ABG O2 Saturation 87.0 % (90-100) L 05/24/21 16:05 ABG Base Excess 7.4 mmol/L (-2.0-2.0) H 05/24/21 16:05 Kane Test Pos 05/24/21 16:05 A-a Gradient 53.0 mmHg 05/24/21 16:05 FiO2 21.0 05/24/21 16:05 Blood Gas Comments Pt soila well eb 05/24/21 16:05 Sodium 137 mmol/L (136-145) 05/27/21 05:20 Corrected Sodium 139 mmol/L (136-145) 05/27/21 05:20 Potassium 3.5 mmol/L (3.5-5.1) 05/27/21 05:20 Chloride 103 mmol/L (98-107) 05/27/21 05:20 Carbon Dioxide 26.0 mmol/L (21-32) 05/27/21 05:20 BUN 12 mg/dL (7-18) 05/27/21 05:20 Creatinine 0.62 mg/dL (0.55-1.02) 05/27/21 05:20 Est GFR (MDRD) Af Amer > 60 (>60) 05/27/21 05:20 Est GFR (MDRD) Non-Af > 60 (>60) 05/27/21 05:20 Glucose 178 mg/dL (65-99) H 05/27/21 05:20 Calcium 7.7 mg/dL (8.5-10.1) L 05/27/21 05:20 Corrected Calcium 9.2 mg/dL (8.5-10.1) 05/27/21 05:20 Magnesium 2.0 mg/dL (1.7-2.9) 05/26/21 05:50 Ferritin 1286 ng/mL (8-252) H 05/24/21 15:51 Total Bilirubin 0.30 mg/dL (0.2-1.0) 05/27/21 05:20 AST 43 Units/L (15-37) H 05/27/21 05:20 ALT 31 Units/L (12-78) 05/27/21 05:20 Alkaline Phosphatase 58 Units/L (46-116) 05/27/21 05:20 C-Reactive Protein 79.10 mg/L (0-3.0) H 05/27/21 05:20 B-Natriuretic Peptide 95.6 pg/mL (0-79) H 05/24/21 15:51 Total Protein 5.6 g/dL (6.4-8.2) L 05/27/21 05:20 Albumin 2.1 g/dL (3.4-5.0) L 05/27/21 05:20 Globulin 3.5 g/dL (2.5-4.5) 05/27/21 05:20 Albumin/Globulin Ratio 0.6 Ratio (1.1-2.1) L 05/27/21 05:20 Specimen Type Catherized urine 05/27/21 09:35 Urine Color Yellow (YELLOW) 05/27/21 09:35 Urine Appearance Clear (CLEAR) 05/27/21 09:35 Urine pH 6.0 (5.0 - 8.0) 05/27/21 09:35 Ur Specific [place] 1.020 (1.000-1.030) 05/27/21 09:35 Urine Protein 2+ (NEGATIVE) 05/27/21 09:35 Urine Glucose (UA) 3+ (NEGATIVE) 05/27/21 09:35 Urine Ketones Negative (NEGATIVE) 05/27/21 09:35 Urine Occult Blood 2+ (NEGATIVE) 05/27/21 09:35 Urine Nitrite Negative (NEGATIVE) 05/27/21 09:35 Urine Bilirubin Negative (NEGATIVE) 05/27/21 09:35 Urine Urobilinogen Normal (NORMAL) 05/27/21 09:35 Ur Leukocyte Esterase Negative (NEGATIVE) 05/27/21 09:35 Urine RBC 0-2 /HPF (0-3) 05/27/21 09:35 Urine WBC 0-2 /HPF (0-5) 05/27/21 09:35 Ur Squamous Epith Cells Few /HPF (NEGATIVE) 05/27/21 09:35 Urine Bacteria Trace /HPF (NEGATIVE) 05/27/21 09:35 Hyaline Casts Few /LPF (NEGATIVE) 05/27/21 09:35 Ur Culture Indicated? Yes/culture set up 05/27/21 09:35 SARS CoV-2 RNA Rapid TITA Positive (NEGATIVE) A 05/24/21 17:26 Plan (1) Pneumonia due to COVID-19 virus: Status: Acute Plan: -pneumonia protocol
[2021-05-27] MEDS: ZOFRAN INJ 4 MG VIAL IVP PRN (21:30)
[2021-05-28] MEDS: SOLU-Medrol 125 MG VIAL IVP SCH ×4 (02:02→21:33)
[2021-05-28] MEDS: TUSSIONEX PENNKINETIC SUSP PO PRN ×2 (05:01→21:32)
[2021-05-28] MEDS: NYSTATIN POWDER TOP SCH ×3 (05:01→21:34)
[2021-05-28] MEDS: BUTT CREAM (COMPOUND) TOP SCH ×3 (05:01→21:34)
[2021-05-28] MEDS: ZOSYN VIAL 3.375 GRAMS 3.375 G in NS 100 ML IV + SPIKE MINIBAG* 100 ML IV SCH ×3 (05:01→21:31)
[2021-05-28] MEDS: NS 1000 ML 1,000 ML IV SCH ×2 (05:02→14:18)
[2021-05-28 05:33] LABS: ABG ALLEN TEST POS; ABG BASE EXCESS 6.2 mmol/L (-2.0-2.0); ABG HCO3 29.5 mmol/L (22-26)
[2021-05-28 06:27] LABS: BASOPHILS % (AUTO) 0.1 % (0.2-1.0); HEMATOCRIT 38.3 % (36.0-47.0); HEMOGLOBIN 13.3 g/dL (12.0-16.0); LYMPHOCYTES # (AUTO) 0.4 X10^3/uL (1.3-2.9); LYMPHOCYTES % (AUTO) 6.6 % (21.0-51.0); MEAN CORPUSCULAR HEMOGLOBIN 30.9 pg (27.0-34.0); MEAN CORPUSCULAR HGB CONC 34.7 g/dL (33.0-35.0); MEAN CORPUSCULAR VOLUME 89.1 fL (80.0-100.0); MEAN PLATELET VOLUME 9.8 fL (7.4-11.0); MONOCYTES # (AUTO) 0.3 x10^3/uL (0.3-0.8); MONOCYTES % (AUTO) 5.5 % (0.0-13.0); NEUTROPHILS # (AUTO) 5.4 x10^3/uL (2.2-4.8); NEUTROPHILS % (AUTO) 87.8 % (42.0-75.0); PLATELET COUNT 161 X10^3/uL (150.0-450.0); RED CELL DISTRIBUTION WIDTH 13.1 % (11.6-16.5); WHITE BLOOD COUNT 6.1 X10^3/uL (3.6-10.0)
[2021-05-28 06:33] LABS: ALANINE AMINOTRANSFERASE 27 Units/L (12-78); ALBUMIN 2.1 g/dL (3.4-5.0); ALKALINE PHOSPHATASE 61 Units/L (46-116); ASPARTATE AMINO TRANSFERASE 41 Units/L (15-37); BLOOD UREA NITROGEN 12 mg/dL (7-18); CALCIUM 7.6 mg/dL (8.5-10.1); CHLORIDE 102 mmol/L (98-107); COR CA(FOR HYPOALB) 9.1 mg/dL (8.5-10.1); COR NA(FOR HYPERGLY) 139 mmol/L (136-145); CREATININE 0.62 mg/dL (0.55-1.02); SODIUM 138 mmol/L (136-145); TOTAL PROTEIN 5.6 g/dL (6.4-8.2); eGFR NON BLACK RACES > 60 (>60)
--- NOTE | 2021-05-28 07:48 | RAD ---
HISTORYPNEUMONIA F/USTUDYCHEST, 1 [id number]/07/2021FINDINGSThe cardiomediastinal silhouette is stable. Similar bilateral airspace opacities. Remote bilateral rib deformities. The bony thorax appears intact.IMPRESSIONNo significant change.Electronically signed by: CHELSI BOURGEOIS (May 28, 2021 07:45:59)
[2021-05-28] MEDS: BROVANA IN SCH ×2 (09:18→20:50)
[2021-05-28] MEDS: PULMICORT NEB TX 0.5 MG NEB SCH ×2 (09:18→20:50)
[2021-05-28] MEDS: DILANTIN CAP 100 MG EXT REL PO SCH (11:03)
[2021-05-28] MEDS: ECOTRIN TAB 325 MG PO SCH ×2 (11:03→21:33)
[2021-05-28] MEDS: LOVENOX INJ 40 MG SYR SC SCH ×2 (11:03→21:32)
[2021-05-28] MEDS: PEPCID TAB 40 MG PO SCH ×2 (11:04→21:32)
[2021-05-28] MEDS: REMDESIVIR 100 MG in NS 250 ML IV 250 ML IV SCH (11:04)
[2021-05-28] MEDS: K-RIDER 10 MEQ/NS 100 ML 10 MEQ/100 ML BAG IV PRN ×4 (14:19→21:49)
[2021-05-28] MEDS: ROBITUSSIN DM PO PRN (21:32)
[2021-05-28] MEDS: TESSALON PERLES PO PRN (21:32)
[2021-05-28] MEDS: ZOFRAN INJ 4 MG VIAL IVP PRN (21:33)
[2021-05-28] MEDS: NORVASC TAB 10 MG PO SCH (21:33)
[2021-05-28] MEDS: MELATONIN PO SCH (21:33)
[2021-05-28] MEDS: MAGNESIUM SULFATE 1 GRAM/100 mL PREMIX 1 GM/100 ML BAG IV PRN (23:37)
[2021-05-29] MEDS: MAGNESIUM SULFATE 1 GRAM/100 mL PREMIX 1 GM/100 ML BAG IV PRN (00:45)
[2021-05-29] MEDS: SOLU-Medrol 125 MG VIAL IVP SCH ×4 (02:17→21:29)
[2021-05-29] MEDS: NS 1000 ML 1,000 ML IV SCH ×4 (02:17→21:31)
[2021-05-29] MEDS: NYSTATIN POWDER TOP SCH ×3 (05:05→21:31)
[2021-05-29] MEDS: BUTT CREAM (COMPOUND) TOP SCH ×3 (05:05→21:31)
[2021-05-29] MEDS: ZOSYN VIAL 3.375 GRAMS 3.375 G in NS 100 ML IV + SPIKE MINIBAG* 100 ML IV SCH ×3 (05:05→21:28)
[2021-05-29 05:09] LABS: ABG BASE EXCESS 5.6 mmol/L (-2.0-2.0); ABG HCO3 29.8 mmol/L (22-26)
[2021-05-29 05:10] LABS: ABG ALLEN TEST POS
[2021-05-29 06:27] LABS: BASOPHILS % (AUTO) 0.1 % (0.2-1.0); HEMATOCRIT 39.5 % (36.0-47.0); HEMOGLOBIN 13.7 g/dL (12.0-16.0); LYMPHOCYTES # (AUTO) 0.4 X10^3/uL (1.3-2.9); LYMPHOCYTES % (AUTO) 5.7 % (21.0-51.0); MEAN CORPUSCULAR HEMOGLOBIN 30.8 pg (27.0-34.0); MEAN CORPUSCULAR HGB CONC 34.7 g/dL (33.0-35.0); MEAN PLATELET VOLUME 9.6 fL (7.4-11.0); MONOCYTES # (AUTO) 0.3 x10^3/uL (0.3-0.8); MONOCYTES % (AUTO) 4.4 % (0.0-13.0); NEUTROPHILS # (AUTO) 6.6 x10^3/uL (2.2-4.8); NEUTROPHILS % (AUTO) 89.8 % (42.0-75.0); PLATELET COUNT 188 X10^3/uL (150.0-450.0); RED BLOOD COUNT 4.44 X10^6/uL (3.5-5.4); RED CELL DISTRIBUTION WIDTH 13.2 % (11.6-16.5); WHITE BLOOD COUNT 7.3 X10^3/uL (3.6-10.0)
[2021-05-29 06:44] LABS: ALANINE AMINOTRANSFERASE 34 Units/L (12-78); ALBUMIN 2.1 g/dL (3.4-5.0); ALKALINE PHOSPHATASE 63 Units/L (46-116); ASPARTATE AMINO TRANSFERASE 46 Units/L (15-37); BLOOD UREA NITROGEN 10 mg/dL (7-18); CALCIUM 7.6 mg/dL (8.5-10.1); CARBON DIOXIDE 29.5 mmol/L (21-32); CHLORIDE 102 mmol/L (98-107); COR CA(FOR HYPOALB) 9.1 mg/dL (8.5-10.1); COR NA(FOR HYPERGLY) 140 mmol/L (136-145); CREATININE 0.59 mg/dL (0.55-1.02); MAGNESIUM 2.1 mg/dL (1.7-2.9); SODIUM 138 mmol/L (136-145); TOTAL PROTEIN 5.7 g/dL (6.4-8.2); eGFR NON BLACK RACES > 60 (>60)
--- NOTE | 2021-05-29 08:09 | RAD ---
HISTORYPNEUMONIA F/USTUDYCHEST, 1 [id number]/08/2021FINDINGSBilateral opacity in the lungs had a more focal appearance on the CTA chest 05/24/2021 consistent with pneumonia. No change from yesterday.No pleural effusion or pneumoth orax.Heart size is normal. Vascular calcifications are present compatible with atherosclerosis.Bones are unremarkable.IMPRESSION1. Unchanged pneumoniaElectronically signed by: Luciano Perez (May 29, 2021 08:07:03)
[2021-05-29] MEDS: LOVENOX INJ 40 MG SYR SC SCH ×2 (09:30→21:28)
[2021-05-29] MEDS: PEPCID TAB 40 MG PO SCH ×2 (09:31→21:29)
[2021-05-29] MEDS: ECOTRIN TAB 325 MG PO SCH ×2 (09:31→21:29)
[2021-05-29] MEDS: DILANTIN CAP 100 MG EXT REL PO SCH (09:31)
--- NOTE | 2021-05-29 09:35 | PCM.PROG ---
Progress Note Progress Note for Day of Date of Exam: 05/29/21 Subjective Subjective: Pt is a 76 year old female with a past medical history of Hypertension, Seizures, CAD, admitted for COVID-19 pneumonia with hypoxia. Yesterday patient's respiratory status continued to decline and she is now utilizing NIPPV BiPAP oxygen with FiO2 90%. Labs/imaging: Wbc 6.1, Hgb 13.3, Plt 161, Na 138, K 3.1, Creatinine 0.62, Glucose 151, CRP 79. Urine culture pending. CXR: Bilateral opacity in the lungs had a more focal appearance on the CTA chest 05/24/2021 consistent with pneumonia. No change from yesterday. ABG: pH 7.51, pCO2 37, pO2 62, HCO3 29, O2sat 94% on BiPAP FiO2 90%. Pt is currently on pneumonia protocol that includes: IVF NS@KVO, Remdesivir, Solumedrol 125mg q6h, scheduled Bronchodilators, Antibiotics: Zosyn, Tussionex BID, immune supporting supplements, supplemental O2, SSI, I/S, Respiratory therapy consult, Pneumonia protocol. Continue to wean/titrate supplemental oxygen as tolerated. Continue to closely monitor and follow up labs/imaging. Time spent on clinical assessment, reviewing labs and imaging, decision making, and documentation greater than 45 minutes. Past Medical Family Social History Past Med/Fam/Surg Hx: No changes since H&P Allergies: Allergies No Known Drug Allergies Allergy (Unverified 05/24/21 15:36) Review of Systems ROS: No change since H&P Vital Signs and I&O's Vital Signs: Temperature 97.4 F Pulse Rate [Apical] 86 Pulse Rate 80 Respiratory Rate 28 Blood Pressure [Left Arm] 138/65 Blood Pressure 95/61 O2 Sat by Pulse Oximetry 92 Intake and Output: Intake & Output 05/26/21 05/27/21 05/28/21 05/29/21 23:59 23:59 23:59 23:59 Intake Total 2145 / 2145 1048 / 1048 500 / 500 428 / 428 Output Total 800 / 800 820 / 820 200 / 200 Balance 2145 / 2145 248 / 248 -320 / -320 228 / 228 Physical Exam Oriented: Normal Eyes: Normal Ear: Normal Nose: Normal Throat: Normal Respiratory: Diminished and Rales Cardiovascular: Normal : Normal Auscultation: Bowel Sounds: Normal Tenderness: Normal Skin: Normal Musculoskeletal: Normal Psychiatric: Normal Mood Description: Calm and Appropriate Affect: Normal Speech Pattern: Clear and Appropriate Laboratory and Diagnostics Result Diagrams: 05/29/21 05:37 05/29/21 05:37 Labs: 05/27/21 09:35 Urine,Clean Catch Urine Culture - Preliminary Laboratory WBC 7.3 X10^3/uL (3.6-10.0) 05/29/21 05:37 RBC 4.44 X10^6/uL (3.5-5.4) 05/29/21 05:37 Hgb 13.7 g/dL (12.0-16.0) 05/29/21 05:37 Hct 39.5 % (36.0-47.0) 05/29/21 05:37 MCV 89.0 fL (80.0-100.0) 05/29/21 05:37 MCH 30.8 pg (27.0-34.0) 05/29/21 05:37 MCHC 34.7 g/dL (33.0-35.0) 05/29/21 05:37 RDW 13.2 % (11.6-16.5) 05/29/21 05:37 Plt Count 188 X10^3/uL (150.0-450.0) 05/29/21 05:37 MPV 9.6 fL (7.4-11.0) 05/29/21 05:37 Neut % (Auto) 89.8 % (42.0-75.0) H 05/29/21 05:37 Lymph % (Auto) 5.7 % (21.0-51.0) L 05/29/21 05:37 [place] % (Auto) 4.4 % (0.0-13.0) 05/29/21 05:37 Eos % (Auto) 0.0 % (0.9-2.9) L 05/29/21 05:37 Baso % (Auto) 0.1 % (0.2-1.0) L 05/29/21 05:37 Neut # (Auto) 6.6 x10^3/uL (2.2-4.8) H 05/29/21 05:37 Lymph # (Auto) 0.4 X10^3/uL (1.3-2.9) L 05/29/21 05:37 [place] # (Auto) 0.3 x10^3/uL (0.3-0.8) 05/29/21 05:37 Eos # (Auto) 0.0 x10^3/uL (0.0-0.2) 05/29/21 05:37 Baso # (Auto) 0.0 X10^3/uL (0.0-0.1) 05/29/21 05:37 Absolute Nucleated RBC 0.0 /100WBC 05/29/21 05:37 D-Dimer 1.92 ug/ml (0.0-0.57) H* 05/24/21 15:51 Sample Site Rrad 05/29/21 05:03 ABG pH 7.470 (7.35-7.45) H 05/29/21 05:03 ABG pCO2 41.0 mmHg (35.0-45.0) 05/29/21 05:03 ABG pO2 72.0 mmHg (80.0-100.0) L 05/29/21 05:03 ABG HCO3 29.8 mmol/L (22-26) H 05/29/21 05:03 ABG O2 Saturation 95.0 % (90-100) 05/29/21 05:03 ABG Base Excess 5.6 mmol/L (-2.0-2.0) H 05/29/21 05:03 Kane Test Pos 05/29/21 05:03 A-a Gradient 518.0 mmHg 05/29/21 05:03 FiO2 90.0 05/29/21 05:03 Blood Gas Comments Pt soila well sa 05/29/21 05:03 Sodium 138 mmol/L (136-145) 05/29/21 05:37 Corrected Sodium 140 mmol/L (136-145) 05/29/21 05:37 Potassium 3.3 mmol/L (3.5-5.1) L 05/29/21 05:37 Chloride 102 mmol/L (98-107) 05/29/21 05:37 Carbon Dioxide 29.5 mmol/L (21-32) 05/29/21 05:37 BUN 10 mg/dL (7-18) 05/29/21 05:37 Creatinine 0.59 mg/dL (0.55-1.02) 05/29/21 05:37 Est GFR (MDRD) Af Amer > 60 (>60) 05/29/21 05:37 Est GFR (MDRD) Non-Af > 60 (>60) 05/29/21 05:37 Glucose 168 mg/dL (65-99) H 05/29/21 05:37 Calcium 7.6 mg/dL (8.5-10.1) L 05/29/21 05:37 Corrected Calcium 9.1 mg/dL (8.5-10.1) 05/29/21 05:37 Magnesium 2.1 mg/dL (1.7-2.9) 05/29/21 05:37 Ferritin 1286 ng/mL (8-252) H 05/24/21 15:51 Total Bilirubin 0.40 mg/dL (0.2-1.0) 05/29/21 05:37 AST 46 Units/L (15-37) H 05/29/21 05:37 ALT 34 Units/L (12-78) 05/29/21 05:37 Alkaline Phosphatase 63 Units/L (46-116) 05/29/21 05:37 C-Reactive Protein 60.30 mg/L (0-3.0) H 05/29/21 05:37 B-Natriuretic Peptide 95.6 pg/mL (0-79) H 05/24/21 15:51 Total Protein 5.7 g/dL (6.4-8.2) L 05/29/21 05:37 Albumin 2.1 g/dL (3.4-5.0) L 05/29/21 05:37 Globulin 3.6 g/dL (2.5-4.5) 05/29/21 05:37 Albumin/Globulin Ratio 0.6 Ratio (1.1-2.1) L 05/29/21 05:37 Specimen Type Catherized urine 05/27/21 09:35 Urine Color Yellow (YELLOW) 05/27/21 09:35 Urine Appearance Clear (CLEAR) 05/27/21 09:35 Urine pH 6.0 (5.0 - 8.0) 05/27/21 09:35 Ur Specific [place] 1.020 (1.000-1.030) 05/27/21 09:35 Urine Protein 2+ (NEGATIVE) 05/27/21 09:35 Urine Glucose (UA) 3+ (NEGATIVE) 05/27/21 09:35 Urine Ketones Negative (NEGATIVE) 05/27/21 09:35 Urine Occult Blood 2+ (NEGATIVE) 05/27/21 09:35 Urine Nitrite Negative (NEGATIVE) 05/27/21 09:35 Urine Bilirubin Negative (NEGATIVE) 05/27/21 09:35 Urine Urobilinogen Normal (NORMAL) 05/27/21 09:35 Ur Leukocyte Esterase Negative (NEGATIVE) 05/27/21 09:35 Urine RBC 0-2 /HPF (0-3) 05/27/21 09:35 Urine WBC 0-2 /HPF (0-5) 05/27/21 09:35 Ur Squamous Epith Cells Few /HPF (NEGATIVE) 05/27/21 09:35 Urine Bacteria Trace /HPF (NEGATIVE) 05/27/21 09:35 Hyaline Casts Few /LPF (NEGATIVE) 05/27/21 09:35 Ur Culture Indicated? Yes/culture set up 05/27/21 09:35 SARS CoV-2 RNA Rapid TITA Positive (NEGATIVE) A 05/24/21 17:26 Plan (1) Pneumonia due to COVID-19 virus: Status: Acute Plan: -pneumonia protocol
--- NOTE | 2021-05-29 09:43 | PCM.PROG ---
Progress Note Progress Note for Day of Date of Exam: 05/29/21 Subjective Subjective: Pt is a 76 year old female with a past medical history of Hypertension, Seizures, CAD, admitted for COVID-19 pneumonia with hypoxia. This morning patient still having significant shortness of breath and dyspnea. Yesterday patient's respiratory status continued to decline and she is now utili zing NIPPV BiPAP oxygen with FiO2 90%. Labs/imaging: Wbc 7.3, Hgb 13.7, Plt 188, Na 138, K 3.3, Creatinine 0.59, Glucose 168, CRP 63>60. CXR: Bilateral opacity in the lungs had a more focal appearance on the CTA chest 05/24/2021 consistent with pneumonia. No change from yesterday. ABG: pH 7.47, pCO2 41, pO2 72, HCO3 29, O2sat 95% on BiPAP FiO2 90%. Pt is currently on pneumonia protocol that includes: IVF NS@KVO, Remdesivir, Solumedrol 125mg q6h, scheduled Bronchodilators, Antibiotics: Zosyn, Tussionex BID, immune supporting supplements, supplemental O2, SSI, I/S, Respiratory therapy consult, Pneumonia protocol. Continue to wean/titrate supplemental oxygen as tolerated. Replete potassium per protocol. Patient also having significant erythema on buttocks, likely fungal, will add nystatin cream and IV Diflucan. Continue to closely monitor and follow up labs/imaging. Time spent on clinical assessment, reviewing labs and imaging, decision making, and documentation greater than 45 minutes. Past Medical Family Social History Past Med/Fam/Surg Hx: No changes since H&P Allergies: Allergies No Known Drug Allergies Allergy (Unverified 05/24/21 15:36) Review of Systems ROS: No change since H&P Vital Signs and I&O's Vital Signs: Temperature 97.4 F Pulse Rate [Apical] 86 Pulse Rate 80 Respiratory Rate 28 Blood Pressure [Left Arm] 138/65 Blood Pressure 95/61 O2 Sat by Pulse Oximetry 92 Intake and Output: Intake & Output 05/26/21 05/27/21 05/28/21 05/29/21 23:59 23:59 23:59 23:59 Intake Total 2145 / 214 1048 / 1048 500 / 500 428 / 428 Output Total 800 / 800 820 / 820 200 / 200 Balance 2146 / 2146 248 / 248 -320 / -320 228 / 228 Physical Exam Oriented: Normal Eyes: Normal Ear: Normal Nose: Normal Throat: Normal Respiratory: Diminished and Rales Cardiovascular: Normal : Normal Auscultation: Bowel Sounds: Normal Tenderness: Normal Skin: Normal Musculoskeletal: Normal Psychiatric: Normal Mood Description: Calm and Appropriate Affect: Normal Speech Pattern: Clear and Appropriate Laboratory and Diagnostics Result Diagrams: 05/29/21 05:37 05/29/21 05:37 Labs: 05/27/21 09:35 Urine,Clean Catch Urine Culture - Preliminary Laboratory WBC 7.3 X10^3/uL (3.6-10.0) 05/29/21 05:37 RBC 4.44 X10^6/uL (3.5-5.4) 05/29/21 05:37 Hgb 13.7 g/dL (12.0-16.0) 05/29/21 05:37 Hct 39.5 % (36.0-47.0) 05/29/21 05:37 MCV 89.0 fL (80.0-100.0) 05/29/21 05:37 MCH 30.8 pg (27.0-34.0) 05/29/21 05:37 MCHC 34.7 g/dL (33.0-35.0) 05/29/21 05:37 RDW 13.2 % (11.6-16.5) 05/29/21 05:37 Plt Count 188 X10^3/uL (150.0-450.0) 05/29/21 05:37 MPV 9.6 fL (7.4-11.0) 05/29/21 05:37 Neut % (Auto) 89.8 % (42.0-75.0) H 05/29/21 05:37 Lymph % (Auto) 5.7 % (21.0-51.0) L 05/29/21 05:37 [place] % (Auto) 4.4 % (0.0-13.0) 05/29/21 05:37 Eos % (Auto) 0.0 % (0.9-2.9) L 05/29/21 05:37 Baso % (Auto) 0.1 % (0.2-1.0) L 05/29/21 05:37 Neut # (Auto) 6.6 x10^3/uL (2.2-4.8) H 05/29/21 05:37 Lymph # (Auto) 0.4 X10^3/uL (1.3-2.9) L 05/29/21 05:37 [place] # (Auto) 0.3 x10^3/uL (0.3-0.8) 05/29/21 05:37 Eos # (Auto) 0.0 x10^3/uL (0.0-0.2) 05/29/21 05:37 Baso # (Auto) 0.0 X10^3/uL (0.0-0.1) 05/29/21 05:37 Absolute Nucleated RBC 0.0 /100WBC 05/29/21 05:37 D-Dimer 1.92 ug/ml (0.0-0.57) H* 05/24/21 15:51 Sample Site Rrad 05/29/21 05:03 ABG pH 7.470 (7.35-7.45) H 05/29/21 05:03 ABG pCO2 41.0 mmHg (35.0-45.0) 05/29/21 05:03 ABG pO2 72.0 mmHg (80.0-100.0) L 05/29/21 05:03 ABG HCO3 29.8 mmol/L (22-26) H 05/29/21 05:03 ABG O2 Saturation 95.0 % (90-100) 05/29/21 05:03 ABG Base Excess 5.6 mmol/L (-2.0-2.0) H 05/29/21 05:03 Kane Test Pos 05/29/21 05:03 A-a Gradient 518.0 mmHg 05/29/21 05:03 FiO2 90.0 05/29/21 05:03 Blood Gas Comments Pt soila well sa 05/29/21 05:03 Sodium 138 mmol/L (136-145) 05/29/21 05:37 Corrected Sodium 140 mmol/L (136-145) 05/29/21 05:37 Potassium 3.3 mmol/L (3.5-5.1) L 05/29/21 05:37 Chloride 102 mmol/L (98-107) 05/29/21 05:37 Carbon Dioxide 29.5 mmol/L (21-32) 05/29/21 05:37 BUN 10 mg/dL (7-18) 05/29/21 05:37 Creatinine 0.59 mg/dL (0.55-1.02) 05/29/21 05:37 Est GFR (MDRD) Af Amer > 60 (>60) 05/29/21 05:37 Est GFR (MDRD) Non-Af > 60 (>60) 05/29/21 05:37 Glucose 168 mg/dL (65-99) H 05/29/21 05:37 Calcium 7.6 mg/dL (8.5-10.1) L 05/29/21 05:37 Corrected Calcium 9.1 mg/dL (8.5-10.1) 05/29/21 05:37 Magnesium 2.1 mg/dL (1.7-2.9) 05/29/21 05:37 Ferritin 1286 ng/mL (8-252) H 05/24/21 15:51 Total Bilirubin 0.40 mg/dL (0.2-1.0) 05/29/21 05:37 AST 46 Units/L (15-37) H 05/29/21 05:37 ALT 34 Units/L (12-78) 05/29/21 05:37 Alkaline Phosphatase 63 Units/L (46-116) 05/29/21 05:37 C-Reactive Protein 60.30 mg/L (0-3.0) H 05/29/21 05:37 B-Natriuretic Peptide 95.6 pg/mL (0-79) H 05/24/21 15:51 Total Protein 5.7 g/dL (6.4-8.2) L 05/29/21 05:37 Albumin 2.1 g/dL (3.4-5.0) L 05/29/21 05:37 Globulin 3.6 g/dL (2.5-4.5) 05/29/21 05:37 Albumin/Globulin Ratio 0.6 Ratio (1.1-2.1) L 05/29/21 05:37 Specimen Type Catherized urine 05/27/21 09:35 Urine Color Yellow (YELLOW) 05/27/21 09:35 Urine Appearance Clear (CLEAR) 05/27/21 09:35 Urine pH 6.0 (5.0 - 8.0) 05/27/21 09:35 Ur Specific [place] 1.020 (1.000-1.030) 05/27/21 09:35 Urine Protein 2+ (NEGATIVE) 05/27/21 09:35 Urine Glucose (UA) 3+ (NEGATIVE) 05/27/21 09:35 Urine Ketones Negative (NEGATIVE) 05/27/21 09:35 Urine Occult Blood 2+ (NEGATIVE) 05/27/21 09:35 Urine Nitrite Negative (NEGATIVE) 05/27/21 09:35 Urine Bilirubin Negative (NEGATIVE) 05/27/21 09:35 Urine Urobilinogen Normal (NORMAL) 05/27/21 09:35 Ur Leukocyte Esterase Negative (NEGATIVE) 05/27/21 09:35 Urine RBC 0-2 /HPF (0-3) 05/27/21 09:35 Urine WBC 0-2 /HPF (0-5) 05/27/21 09:35 Ur Squamous Epith Cells Few /HPF (NEGATIVE) 05/27/21 09:35 Urine Bacteria Trace /HPF (NEGATIVE) 05/27/21 09:35 Hyaline Casts Few /LPF (NEGATIVE) 05/27/21 09:35 Ur Culture Indicated? Yes/culture set up 05/27/21 09:35 SARS CoV-2 RNA Rapid TITA Positive (NEGATIVE) A 05/24/21 17:26 Plan (1) Pneumonia due to COVID-19 virus: Status: Acute Plan: -pneumonia protocol
[2021-05-29] MEDS: BROVANA IN SCH ×2 (09:50→21:06)
[2021-05-29] MEDS: PULMICORT NEB TX 0.5 MG NEB SCH ×2 (09:50→21:06)
[2021-05-29] MEDS: NYSTATIN CREAM TOP SCH ×3 (09:57→21:31)
[2021-05-29] MEDS: REMDESIVIR 100 MG in NS 250 ML IV 250 ML IV SCH (09:57)
[2021-05-29] MEDS: DIFLUCAN 200 MG IV PREMIX* 200 MG/100 ML BAG IV SCH (11:03)
[2021-05-29] MEDS: MORPHINE SULFATE INJ 2 MG INJ IVP PRN ×2 (12:21→21:32)
[2021-05-29] MEDS: TESSALON PERLES PO PRN ×2 (13:24→21:28)
[2021-05-29] MEDS: K-RIDER 10 MEQ/NS 100 ML 10 MEQ/100 ML BAG IV PRN ×2 (16:56→18:07)
[2021-05-29] MEDS: TUSSIONEX PENNKINETIC SUSP PO PRN (17:28)
[2021-05-29] MEDS: NORVASC TAB 10 MG PO SCH (21:29)
[2021-05-29] MEDS: MELATONIN PO SCH (21:29)
[2021-05-30] MEDS: SOLU-Medrol 125 MG VIAL IVP SCH ×4 (02:26→21:00)
[2021-05-30] MEDS: NS 1000 ML 1,000 ML IV SCH ×3 (05:01→22:30)
[2021-05-30] MEDS: NYSTATIN CREAM TOP SCH ×3 (05:01→21:00)
[2021-05-30] MEDS: TUSSIONEX PENNKINETIC SUSP PO PRN ×2 (05:01→23:48)
[2021-05-30] MEDS: BUTT CREAM (COMPOUND) TOP SCH ×3 (05:01→21:00)
[2021-05-30] MEDS: ZOSYN VIAL 3.375 GRAMS 3.375 G in NS 100 ML IV + SPIKE MINIBAG* 100 ML IV SCH ×2 (05:01→13:46)
[2021-05-30] MEDS: NYSTATIN POWDER TOP SCH ×3 (05:02→21:00)
[2021-05-30 06:25] LABS: BASOPHILS % (AUTO) 0.2 % (0.2-1.0); HEMATOCRIT 39.3 % (36.0-47.0); HEMOGLOBIN 13.8 g/dL (12.0-16.0); LYMPHOCYTES # (AUTO) 0.3 X10^3/uL (1.3-2.9); LYMPHOCYTES % (AUTO) 5.1 % (21.0-51.0); MEAN CORPUSCULAR HEMOGLOBIN 31.4 pg (27.0-34.0); MEAN CORPUSCULAR HGB CONC 35.2 g/dL (33.0-35.0); MEAN CORPUSCULAR VOLUME 89.4 fL (80.0-100.0); MEAN PLATELET VOLUME 9.3 fL (7.4-11.0); MONOCYTES # (AUTO) 0.3 x10^3/uL (0.3-0.8); MONOCYTES % (AUTO) 4.1 % (0.0-13.0); NEUTROPHILS % (AUTO) 90.6 % (42.0-75.0); PLATELET COUNT 188 X10^3/uL (150.0-450.0); RED BLOOD COUNT 4.39 X10^6/uL (3.5-5.4); RED CELL DISTRIBUTION WIDTH 13.3 % (11.6-16.5); WHITE BLOOD COUNT 6.7 X10^3/uL (3.6-10.0)
[2021-05-30 06:39] LABS: ALANINE AMINOTRANSFERASE 32 Units/L (12-78); ALBUMIN 2.1 g/dL (3.4-5.0); ALKALINE PHOSPHATASE 81 Units/L (46-116); ASPARTATE AMINO TRANSFERASE 38 Units/L (15-37); BLOOD UREA NITROGEN 12 mg/dL (7-18); CALCIUM 7.6 mg/dL (8.5-10.1); CARBON DIOXIDE 26.8 mmol/L (21-32); CHLORIDE 101 mmol/L (98-107); COR CA(FOR HYPOALB) 9.1 mg/dL (8.5-10.1); COR NA(FOR HYPERGLY) 140 mmol/L (136-145); CREATININE 0.67 mg/dL (0.55-1.02); SODIUM 138 mmol/L (136-145); TOTAL PROTEIN 5.8 g/dL (6.4-8.2); eGFR NON BLACK RACES > 60 (>60)
--- NOTE | 2021-05-30 07:14 | RAD ---
HISTORYPNEUMONIA F/U Relevant Clinical InformationSTUDYCHEST, 1 [id number]/09/2021FINDINGSThe trachea is midline. The cardiac silhouette is unremarkable. Diffuse bilateral pneumonic infiltrates unchanged. No pleural effusion or pneumothorax.. The bony thorax is unremarkable.IMPRESSIONStable portable chestElectronically signed by: Balwinder Betancur (May 30, 2021 07:12:22)
[2021-05-30 07:43] LABS: PLATELET MORPHOLOGY COMMENT NORMAL (NORMAL)
[2021-05-30] MEDS: BROVANA IN SCH ×2 (08:15→21:06)
[2021-05-30] MEDS: PULMICORT NEB TX 0.5 MG NEB SCH ×2 (08:15→21:06)
[2021-05-30] MEDS: DILANTIN CAP 100 MG EXT REL PO SCH (09:41)
[2021-05-30] MEDS: ECOTRIN TAB 325 MG PO SCH ×2 (09:41→21:00)
[2021-05-30] MEDS: PEPCID TAB 40 MG PO SCH ×2 (09:42→21:00)
[2021-05-30 09:54] LABS: ABG HCO3 27.4 mmol/L (22-26)
[2021-05-30 09:55] LABS: ABG ALLEN TEST POS
[2021-05-30] MEDS: DIFLUCAN 200 MG IV PREMIX* 200 MG/100 ML BAG IV SCH (09:59)
[2021-05-30] MEDS: REMDESIVIR 100 MG in NS 250 ML IV 250 ML IV SCH (09:59)
[2021-05-30] MEDS: LOVENOX INJ 40 MG SYR SC SCH ×2 (09:59→21:00)
--- NOTE | 2021-05-30 18:56 | PCM.PROG ---
Progress Note Progress Note for Day of Date of Exam: 05/30/21 Subjective Subjective: Pt is a 76 year old female with a past medical history of Hypertension, Seizures, CAD, admitted for COVID-19 pneumonia with hypoxia. This morning patient continues to have significant shortness of breath and dyspnea. She is currently utilizing NIPPV BiPAP oxygen with a FiO2 of 90%. Labs/imaging: Wbc 6.7, Hgb 13.8, Plt 188, Na 138, K 3.7, Creatinine 0.67, Glucose 195, CRP 80. CXR: Diffuse bilateral pneumonic infiltrates unchanged. ABG: pH 7.49, pCO2 36, pO2 50, HCO3 27, O2sat 88% on BiPAP FiO2 100%. Pt is currently on pneumonia protocol that includes: IVF NS@KVO, Remdesivir, Solumedrol 125mg q6h, scheduled Bronchodilators, Antibiotics: IV Zosyn, Diflucan, Tussionex BID, immune support ing supplements, supplemental O2, SSI, I/S, Respiratory therapy consult, Pneumonia protocol. Will transfer patient to ICU for closer monitoring and observation. Continue to wean/titrate supplemental oxygen as tolerated. Will change antibiotics to fortaz and levaquin. Continue to closely monitor and follow up labs/imaging. Critical care time spent on clinical assessment, reviewing labs and imaging, decision making, and documentation greater than 45 minutes. Past Medical Family Social History Past Med/Fam/Surg Hx: No changes since H&P Allergies: Allergies No Known Drug Allergies Allergy (Unverified 05/24/21 15:36) Review of Systems ROS: No change since H&P Vital Signs and I&O's Vital Signs: Temperature 98.4 F Pulse Rate [Apical] 92 Pulse Rate 83 Respiratory Rate 22 Blood Pressure [Left Arm] 149/69 Blood Pressure 146/70 O2 Sat by Pulse Oximetry 98 Intake and Output: Intake & Output 05/27/21 05/28/21 05/29/21 05/30/21 23:59 23:59 23:59 23:59 Intake Total 1048 / 1048 500 / 500 1526 / 1526 794 / 794 Output Total 800 / 800 820 / 820 800 / 800 501 / 501 Balance 248 / 248 -320 / -320 726 / 726 293 / 293 Physical Exam Oriented: Normal Eyes: Normal Ear: Normal Nose: Normal Throat: Normal Respiratory: Diminished and Rales Cardiovascular: Normal : Normal Auscultation: Bowel Sounds: Normal Tenderness: Normal Skin: Normal Musculoskeletal: Normal Psychiatric: Normal Mood Description: Calm and Appropriate Affect: Normal Speech Pattern: Clear and Appropriate Laboratory and Diagnostics Result Diagrams: 05/30/21 06:03 05/30/21 06:03 Labs: 05/27/21 09:35 Urine,Clean Catch Urine Culture - Final Laboratory WBC 6.7 X10^3/uL (3.6-10.0) 05/30/21 06:03 RBC 4.39 X10^6/uL (3.5-5.4) 05/30/21 06:03 Hgb 13.8 g/dL (12.0-16.0) 05/30/21 06:03 Hct 39.3 % (36.0-47.0) 05/30/21 06:03 MCV 89.4 fL (80.0-100.0) 05/30/21 06:03 MCH 31.4 pg (27.0-34.0) 05/30/21 06:03 MCHC 35.2 g/dL (33.0-35.0) H 05/30/21 06:03 RDW 13.3 % (11.6-16.5) 05/30/21 06:03 Plt Count 188 X10^3/uL (150.0-450.0) 05/30/21 06:03 Plt Count Comment Adequate (ADEQUATE) 05/30/21 06:03 MPV 9.3 fL (7.4-11.0) 05/30/21 06:03 Neut % (Auto) 90.6 % (42.0-75.0) H 05/30/21 06:03 Lymph % (Auto) 5.1 % (21.0-51.0) L 05/30/21 06:03 [place] % (Auto) 4.1 % (0.0-13.0) 05/30/21 06:03 Eos % (Auto) 0.0 % (0.9-2.9) L 05/30/21 06:03 Baso % (Auto) 0.2 % (0.2-1.0) 05/30/21 06:03 Neut # (Auto) 6.0 x10^3/uL (2.2-4.8) H 05/30/21 06:03 Lymph # (Auto) 0.3 X10^3/uL (1.3-2.9) L 05/30/21 06:03 [place] # (Auto) 0.3 x10^3/uL (0.3-0.8) 05/30/21 06:03 Eos # (Auto) 0.0 x10^3/uL (0.0-0.2) 05/30/21 06:03 Baso # (Auto) 0.0 X10^3/uL (0.0-0.1) 05/30/21 06:03 Absolute Nucleated RBC 0.1 /100WBC 05/30/21 06:03 Total Counted 100 05/30/21 06:03 Neutrophils % (Manual) 94 % (39-76) H 05/30/21 06:03 Lymphocytes % (Manual) 4 % (13-43) L 05/30/21 06:03 Monocytes % (Manual) 2 % (4-9) L 05/30/21 06:03 Plt Morphology Comment Normal (NORMAL) 05/30/21 06:03 RBC Morphology Normal (NORMAL) 05/30/21 06:03 D-Dimer 1.92 ug/ml (0.0-0.57) H* 05/24/21 15:51 Sample Site Lr 05/30/21 09:50 ABG pH 7.490 (7.35-7.45) H 05/30/21 09:50 ABG pCO2 36.0 mmHg (35.0-45.0) 05/30/21 09:50 ABG pO2 50.0 mmHg (80.0-100.0) L 05/30/21 09:50 ABG HCO3 27.4 mmol/L (22-26) H 05/30/21 09:50 ABG O2 Saturation 88.0 % (90-100) L 05/30/21 09:50 ABG Base Excess 4.0 mmol/L (-2.0-2.0) H 05/30/21 09:50 Kane Test Pos 05/30/21 09:50 A-a Gradient 618.0 mmHg 05/30/21 09:50 FiO2 100.0 05/30/21 09:50 Blood Gas Comments Chapo well. sd 05/30/21 09:50 Sodium 138 mmol/L (136-145) 05/30/21 06:03 Corrected Sodium 140 mmol/L (136-145) 05/30/21 06:03 Potassium 3.7 mmol/L (3.5-5.1) 05/30/21 06:03 Chloride 101 mmol/L (98-107) 05/30/21 06:03 Carbon Dioxide 26.8 mmol/L (21-32) 05/30/21 06:03 BUN 12 mg/dL (7-18) 05/30/21 06:03 Creatinine 0.67 mg/dL (0.55-1.02) 05/30/21 06:03 Est GFR (MDRD) Af Amer > 60 (>60) 05/30/21 06:03 Est GFR (MDRD) Non-Af > 60 (>60) 05/30/21 06:03 Glucose 195 mg/dL (65-99) H 05/30/21 06:03 POC Glucose (mg/dL) 209 mg/dL (65-99) H 05/29/21 16:20 Calcium 7.6 mg/dL (8.5-10.1) L 05/30/21 06:03 Corrected Calcium 9.1 mg/dL (8.5-10.1) 05/30/21 06:03 Magnesium 2.1 mg/dL (1.7-2.9) 05/29/21 05:37 Ferritin 1286 ng/mL (8-252) H 05/24/21 15:51 Total Bilirubin 0.40 mg/dL (0.2-1.0) 05/30/21 06:03 AST 38 Units/L (15-37) H 05/30/21 06:03 ALT 32 Units/L (12-78) 05/30/21 06:03 Alkaline Phosphatase 81 Units/L (46-116) 05/30/21 06:03 C-Reactive Protein 80.50 mg/L (0-3.0) H 05/30/21 06:03 B-Natriuretic Peptide 95.6 pg/mL (0-79) H 05/24/21 15:51 Total Protein 5.8 g/dL (6.4-8.2) L 05/30/21 06:03 Albumin 2.1 g/dL (3.4-5.0) L 05/30/21 06:03 Globulin 3.7 g/dL (2.5-4.5) 05/30/21 06:03 Albumin/Globulin Ratio 0.6 Ratio (1.1-2.1) L 05/30/21 06:03 Specimen Type Catherized urine 05/27/21 09:35 Urine Color Yellow (YELLOW) 05/27/21 09:35 Urine Appearance Clear (CLEAR) 05/27/21 09:35 Urine pH 6.0 (5.0 - 8.0) 05/27/21 09:35 Ur Specific [place] 1.020 (1.000-1.030) 05/27/21 09:35 Urine Protein 2+ (NEGATIVE) 05/27/21 09:35 Urine Glucose (UA) 3+ (NEGATIVE) 05/27/21 09:35 Urine Ketones Negative (NEGATIVE) 05/27/21 09:35 Urine Occult Blood 2+ (NEGATIVE) 05/27/21 09:35 Urine Nitrite Negative (NEGATIVE) 05/27/21 09:35 Urine Bilirubin Negative (NEGATIVE) 05/27/21 09:35 Urine Urobilinogen Normal (NORMAL) 05/27/21 09:35 Ur Leukocyte Esterase Negative (NEGATIVE) 05/27/21 09:35 Urine RBC 0-2 /HPF (0-3) 05/27/21 09:35 Urine WBC 0-2 /HPF (0-5) 05/27/21 09:35 Ur Squamous Epith Cells Few /HPF (NEGATIVE) 05/27/21 09:35 Urine Bacteria Trace /HPF (NEGATIVE) 05/27/21 09:35 Hyaline Casts Few /LPF (NEGATIVE) 05/27/21 09:35 Ur Culture Indicated? Yes/culture set up 05/27/21 09:35 SARS CoV-2 RNA Rapid TITA Positive (NEGATIVE) A 05/24/21 17:26 Plan (1) Pneumonia due to COVID-19 virus: Status: Acute Plan: -pneumonia protocol
[2021-05-30] MEDS: MORPHINE SULFATE INJ 2 MG INJ IVP PRN (21:00)
[2021-05-30] MEDS: NORVASC TAB 10 MG PO SCH (21:00)
[2021-05-30] MEDS: MELATONIN PO SCH (21:00)
[2021-05-30] MEDS: FORTAZ or TAZICEF VIAL INJ 1 G in NS 100 ML IV + SPIKE MINIBAG* 100 ML IV SCH ×2 (23:00→23:06)
[2021-05-31] MEDS: MORPHINE SULFATE INJ 2 MG INJ IVP PRN ×3 (01:35→20:00)
[2021-05-31] MEDS: SOLU-Medrol 125 MG VIAL IVP SCH ×4 (04:00→21:00)
[2021-05-31] MEDS: NS 1000 ML 1,000 ML IV SCH (04:51)
[2021-05-31 05:15] LABS: ABG BASE EXCESS 4.2 mmol/L (-2.0-2.0); ABG HCO3 28.4 mmol/L (22-26)
[2021-05-31 05:16] LABS: ABG ALLEN TEST POSS
[2021-05-31] MEDS: FORTAZ or TAZICEF VIAL INJ 1 G in NS 100 ML IV + SPIKE MINIBAG* 100 ML IV SCH ×2 (05:41→14:15)
[2021-05-31] MEDS: BUTT CREAM (COMPOUND) TOP SCH ×3 (05:41→21:00)
[2021-05-31] MEDS: NYSTATIN CREAM TOP SCH ×3 (05:42→21:00)
[2021-05-31] MEDS: NYSTATIN POWDER TOP SCH ×3 (05:42→21:00)
[2021-05-31 06:12] LABS: BASOPHILS % (AUTO) 0.1 % (0.2-1.0); HEMATOCRIT 37.4 % (36.0-47.0); HEMOGLOBIN 12.9 g/dL (12.0-16.0); LYMPHOCYTES # (AUTO) 0.4 X10^3/uL (1.3-2.9); LYMPHOCYTES % (AUTO) 5.4 % (21.0-51.0); MEAN CORPUSCULAR HGB CONC 34.6 g/dL (33.0-35.0); MEAN CORPUSCULAR VOLUME 89.6 fL (80.0-100.0); MEAN PLATELET VOLUME 9.7 fL (7.4-11.0); MONOCYTES # (AUTO) 0.3 x10^3/uL (0.3-0.8); MONOCYTES % (AUTO) 4.8 % (0.0-13.0); NEUTROPHILS # (AUTO) 5.8 x10^3/uL (2.2-4.8); NEUTROPHILS % (AUTO) 89.7 % (42.0-75.0); PLATELET COUNT 187 X10^3/uL (150.0-450.0); RED BLOOD COUNT 4.17 X10^6/uL (3.5-5.4); RED CELL DISTRIBUTION WIDTH 13.1 % (11.6-16.5); WHITE BLOOD COUNT 6.5 X10^3/uL (3.6-10.0)
[2021-05-31 06:23] LABS: ALANINE AMINOTRANSFERASE 29 Units/L (12-78); ALBUMIN 1.9 g/dL (3.4-5.0); ALKALINE PHOSPHATASE 97 Units/L (46-116); ASPARTATE AMINO TRANSFERASE 32 Units/L (15-37); BLOOD UREA NITROGEN 15 mg/dL (7-18); CALCIUM 7.5 mg/dL (8.5-10.1); CARBON DIOXIDE 29.9 mmol/L (21-32); CHLORIDE 103 mmol/L (98-107); COR CA(FOR HYPOALB) 9.2 mg/dL (8.5-10.1); COR NA(FOR HYPERGLY) 144 mmol/L (136-145); SODIUM 141 mmol/L (136-145); TOTAL PROTEIN 5.2 g/dL (6.4-8.2); eGFR NON BLACK RACES > 60 (>60)
--- NOTE | 2021-05-31 07:56 | RAD ---
HISTORYFollow up pneumoniaSTUDYPortable AP [id number]/10/2021FINDINGSContinued normal heart size and contour. Diffuse bilateral pulmonary infiltrates are similar in the right lung but slightly increased in the left lower lobe; previously visible contours of descending aorta and left diaphragm now obscured. No pleural fluid or pneumothora x seen.IMPRESSIONPersistent bilateral pneumonia with slight progression in the left lower lobe since prior exam.Electronically signed by: ANDREW MARTINEZ (May 31, 2021 07:53:31)
[2021-05-31] MEDS ORDERED: LASIX IVP ONE (09:24)
[2021-05-31] MEDS: LEVAQUIN PREMIX IV 500 MG 500 MG/100 ML BAG IV SCH (09:31)
[2021-05-31] MEDS: DIFLUCAN 200 MG IV PREMIX* 200 MG/100 ML BAG IV SCH (09:31)
[2021-05-31] MEDS: LOVENOX INJ 40 MG SYR SC SCH (09:34)
[2021-05-31] MEDS: REMDESIVIR 100 MG in NS 250 ML IV 250 ML IV SCH (09:36)
[2021-05-31] MEDS ORDERED: K-DUR TAB 20 MEQ PO SCH (10:00)
[2021-05-31] MEDS: PULMICORT NEB TX 0.5 MG NEB SCH ×2 (10:09→20:52)
[2021-05-31] MEDS: BROVANA IN SCH ×2 (10:09→20:52)
[2021-05-31] MEDS: ECOTRIN TAB 325 MG PO SCH ×2 (13:40→21:00)
[2021-05-31] MEDS: DILANTIN CAP 100 MG EXT REL PO SCH (13:40)
[2021-05-31 14:35] VITALS: BMI 26.5
[2021-05-31] MEDS: CEREBYX IV SCH (15:26)
[2021-05-31] MEDS: NS IV SCH (15:26)
[2021-05-31] MEDS: K-RIDER 10 MEQ/NS 100 ML 10 MEQ/100 ML BAG IV PRN ×2 (17:00→19:15)
[2021-05-31] MEDS ORDERED: PEPCID 20 MG IV PREMIX* 50 ML IV ONE (19:54)
[2021-05-31 21:12] LABS: ABG BASE EXCESS 3.9 mmol/L (-2.0-2.0); ABG HCO3 27.7 mmol/L (22-26)
[2021-05-31 21:14] LABS: ABG ALLEN TEST POS
[2021-05-31] MEDS ORDERED: HALDOL INJ ONE (21:33)
[2021-05-31] MEDS ORDERED: NORCURON INJ 10 MG VIAL ONE (22:37)
[2021-05-31] MEDS ORDERED: DIPRIVAN PREMIX 1 GRAM IV 1,000 MG/100 ML VIAL ONE (22:37)
[2021-05-31] MEDS ORDERED: DIPRIVAN VIAL 20 ML ONE (22:38)
[2021-05-31] MEDS ORDERED: QUELICIN (OR ANECTINE) ONE (22:39)
[2021-05-31] MEDS ORDERED: DIPRIVAN VIAL IVP ONE (22:45)
[2021-05-31] MEDS ORDERED: QUELICIN (OR ANECTINE) IVP ONE (22:45)
[2021-05-31] MEDS: DIPRIVAN PREMIX 1 GRAM IV 1,000 MG/100 ML VIAL IV PRN (22:57)
[2021-05-31] MEDS: NORCURON INJ 10 MG VIAL 50 MG in NS 50 ML IV 50 ML IV PRN (23:00)
--- NOTE | 2021-05-31 23:10 | RAD ---
HISTORYET TUBE PLACEMENT Relevant Clinical InformationSTUDYCHEST, 1 [id number]/11/2021FINDINGSThe trachea is midline. Endotracheal tube approximately 3.5 cm above the elder. The cardiac silhouette is unremarkable. Diffuse bilateral pulmonary infiltrates left slightly greater than right. No pneumothorax.. The bony thorax is unremarkable.IMPRESSIONEndotracheal tube in satisfactory position.Diffuse bilateral pulmonary infiltrates left greater than right unchanged.Electronically signed by: Balwinder Betancur (May 31, 2021 23:07:55)
[2021-05-31] MEDS ORDERED: LEVOPHED INJ ONE (23:15)
[2021-05-31] MEDS ORDERED: D5W 250 ML IV 250 ML IV ONE (23:16)
[2021-06-01] MEDS: MELATONIN PO SCH ×2 (00:34→21:58)
[2021-06-01] MEDS: NORVASC TAB 10 MG PO SCH ×2 (00:36→21:58)
[2021-06-01] MEDS: NS 1000 ML 1,000 ML IV SCH ×2 (00:36→05:00)
[2021-06-01] MEDS ORDERED: HALDOL INJ IM ONE (01:09)
[2021-06-01] MEDS: PEPCID 20 MG IV PREMIX* 20 MG/50 ML BAG IV SCH ×3 (01:20→21:56)
[2021-06-01] MEDS: NORCURON INJ 10 MG VIAL 50 MG in NS 50 ML IV 50 ML IV PRN ×2 (03:10→22:00)
[2021-06-01] MEDS: DIPRIVAN PREMIX 1 GRAM IV 1,000 MG/100 ML VIAL IV PRN ×3 (03:50→17:51)
[2021-06-01] MEDS: FORTAZ or TAZICEF VIAL INJ 1 G in NS 100 ML IV + SPIKE MINIBAG* 100 ML IV SCH ×5 (05:00→21:58)
[2021-06-01] MEDS: SOLU-Medrol 125 MG VIAL IVP SCH ×4 (05:00→21:56)
[2021-06-01 05:06] LABS: ABG BASE EXCESS 0.8 mmol/L (-2.0-2.0)
[2021-06-01 05:10] LABS: ABG ALLEN TEST POS; ABG HCO3 30.3 mmol/L (22-26)
[2021-06-01 06:00] LABS: ALANINE AMINOTRANSFERASE 33 Units/L (12-78); ALBUMIN 2.2 g/dL (3.4-5.0); ALKALINE PHOSPHATASE 129 Units/L (46-116); ASPARTATE AMINO TRANSFERASE 27 Units/L (15-37); BLOOD UREA NITROGEN 20 mg/dL (7-18); CALCIUM 7.6 mg/dL (8.5-10.1); CARBON DIOXIDE 27.7 mmol/L (21-32); CHLORIDE 104 mmol/L (98-107); COR NA(FOR HYPERGLY) 149 mmol/L (136-145); CREATININE 0.72 mg/dL (0.55-1.02); SODIUM 144 mmol/L (136-145); eGFR NON BLACK RACES > 60 (>60)
[2021-06-01] MEDS: LACRI-LUBE S.O.P. EACHEYE SCH ×3 (06:00→21:58)
[2021-06-01] MEDS ORDERED: LACRI-LUBE S.O.P. ONE (06:08)
[2021-06-01 06:20] LABS: BASOPHILS % (AUTO) 0 % (0.2-1.0); HEMATOCRIT 43.9 % (36.0-47.0); HEMOGLOBIN 14.8 g/dL (12.0-16.0); LYMPHOCYTES # (AUTO) 0.2 X10^3/uL (1.3-2.9); LYMPHOCYTES % (AUTO) 1.5 % (21.0-51.0); MEAN CORPUSCULAR HEMOGLOBIN 30.6 pg (27.0-34.0); MEAN CORPUSCULAR HGB CONC 33.7 g/dL (33.0-35.0); MEAN CORPUSCULAR VOLUME 90.9 fL (80.0-100.0); MEAN PLATELET VOLUME 8.9 fL (7.4-11.0); MONOCYTES # (AUTO) 0.5 x10^3/uL (0.3-0.8); NEUTROPHILS # (AUTO) 11.5 x10^3/uL (2.2-4.8); NEUTROPHILS % (AUTO) 94.5 % (42.0-75.0); PLATELET COUNT 113 X10^3/uL (150.0-450.0); RED BLOOD COUNT 4.84 X10^6/uL (3.5-5.4); RED CELL DISTRIBUTION WIDTH 13.6 % (11.6-16.5); WHITE BLOOD COUNT 12.2 X10^3/uL (3.6-10.0)
[2021-06-01 06:36] LABS: BAND NEUTROPHILS % 3 % (0-10)
[2021-06-01 06:37] LABS: PLATELET MORPHOLOGY COMMENT NORMAL (NORMAL)
[2021-06-01] MEDS: BUTT CREAM (COMPOUND) TOP SCH ×3 (06:41→21:56)
[2021-06-01] MEDS: NYSTATIN POWDER TOP SCH ×3 (06:42→21:59)
[2021-06-01] MEDS: NYSTATIN CREAM TOP SCH ×3 (06:42→21:59)
--- NOTE | 2021-06-01 07:48 | RAD ---
HISTORYCOVID-19STUDYPortable AP [id number]/11/2021FINDINGSContinued normal heart size. Similar extent and distribution of bila teral asymmetric airspace disease, left greater than right. No additional consolidation, complicating extrapulmonary air or large pleural effusion. Support lines are stable.IMPRESSIONNo change.Morena schwartz signed by: ANDREW MARTINEZ (Jun 01, 2021 07:46:18)
[2021-06-01] MEDS: DIFLUCAN 200 MG IV PREMIX* 200 MG/100 ML BAG IV SCH (09:30)
[2021-06-01] MEDS: LEVAQUIN PREMIX IV 500 MG 500 MG/100 ML BAG IV SCH (09:32)
[2021-06-01] MEDS: ECOTRIN TAB 325 MG PO SCH ×2 (09:32→21:55)
[2021-06-01] MEDS: LOVENOX INJ 40 MG SYR SC SCH ×3 (09:33→21:57)
[2021-06-01] MEDS: BROVANA IN SCH ×2 (09:34→21:00)
[2021-06-01] MEDS: PULMICORT NEB TX 0.5 MG NEB SCH ×2 (09:34→21:00)
[2021-06-01] MEDS: CEREBYX IV SCH (15:31)
[2021-06-01] MEDS: NS IV SCH (15:31)
[2021-06-01] MEDS ORDERED: NS 100 ML IV 100 ML ONE (15:41)
--- NOTE | 2021-06-01 20:04 | RAD ---
HISTORYCOVID; VERIFY NG TUBE PLACEMENTSTUDYKUBCOMPARISONNoneFINDINGSEvaluation of the abdomen demonstrates a nonobstructive bowel gas pattern in the visualized portions of the abdomen. Enteric tube tip overlying the gastric lumen. No pathological soft tissue mass or calcification can be observed. The bony structures are grossly i ntact.IMPRESSIONEnteric tube tip overlying the gastric lumen.Electronically signed by: CHELSI BOURGEOIS (Jun 01, 2021 20:02:55)
[2021-06-02] MEDS: DIPRIVAN PREMIX 1 GRAM IV 1,000 MG/100 ML VIAL IV PRN ×3 (01:25→14:49)
[2021-06-02] MEDS: SOLU-Medrol 125 MG VIAL IVP SCH ×2 (02:52→09:44)
[2021-06-02 04:46] LABS: ABG BASE EXCESS 0.9 mmol/L (-2.0-2.0)
[2021-06-02 04:47] LABS: ABG HCO3 30.2 mmol/L (22-26)
[2021-06-02 04:48] LABS: ABG ALLEN TEST POS
[2021-06-02 05:08] LABS: BASOPHILS % (AUTO) 0 % (0.2-1.0); EOSINOPHILS # (AUTO) 0.2 x10^3/uL (0.0-0.2); EOSINOPHILS % (AUTO) 1.3 % (0.9-2.9); HEMATOCRIT 44.9 % (36.0-47.0); HEMOGLOBIN 15.1 g/dL (12.0-16.0); LYMPHOCYTES # (AUTO) 0.2 X10^3/uL (1.3-2.9); LYMPHOCYTES % (AUTO) 1.8 % (21.0-51.0); MEAN CORPUSCULAR HEMOGLOBIN 31.1 pg (27.0-34.0); MEAN CORPUSCULAR HGB CONC 33.6 g/dL (33.0-35.0); MEAN CORPUSCULAR VOLUME 92.4 fL (80.0-100.0); MEAN PLATELET VOLUME 9.4 fL (7.4-11.0); MONOCYTES # (AUTO) 0.2 x10^3/uL (0.3-0.8); MONOCYTES % (AUTO) 1.6 % (0.0-13.0); NEUTROPHILS # (AUTO) 11.5 x10^3/uL (2.2-4.8); NEUTROPHILS % (AUTO) 95.3 % (42.0-75.0); PLATELET COUNT 91 X10^3/uL (150.0-450.0); RED BLOOD COUNT 4.86 X10^6/uL (3.5-5.4); RED CELL DISTRIBUTION WIDTH 14.1 % (11.6-16.5); WHITE BLOOD COUNT 12.1 X10^3/uL (3.6-10.0)
[2021-06-02 05:16] LABS: ALANINE AMINOTRANSFERASE 28 Units/L (12-78); ALBUMIN 2.1 g/dL (3.4-5.0); ALKALINE PHOSPHATASE 104 Units/L (46-116); ASPARTATE AMINO TRANSFERASE 19 Units/L (15-37); BLOOD UREA NITROGEN 30 mg/dL (7-18); CALCIUM 8.1 mg/dL (8.5-10.1); CARBON DIOXIDE 27.1 mmol/L (21-32); CHLORIDE 107 mmol/L (98-107); COR CA(FOR HYPOALB) 9.6 mg/dL (8.5-10.1); COR NA(FOR HYPERGLY) 154 mmol/L (136-145); CREATININE 0.95 mg/dL (0.55-1.02); SODIUM 146 mmol/L (136-145); TOTAL PROTEIN 5.6 g/dL (6.4-8.2); eGFR NON BLACK RACES > 60 (>60)
[2021-06-02] MEDS: NYSTATIN CREAM TOP SCH ×3 (05:23→21:00)
[2021-06-02] MEDS: NYSTATIN POWDER TOP SCH ×3 (05:23→21:00)
[2021-06-02] MEDS: BUTT CREAM (COMPOUND) TOP SCH ×3 (05:23→21:00)
[2021-06-02] MEDS: FORTAZ or TAZICEF VIAL INJ 1 G in NS 100 ML IV + SPIKE MINIBAG* 100 ML IV SCH ×3 (05:23→21:00)
[2021-06-02 05:37] LABS: BAND NEUTROPHILS % 1 % (0-10); PLATELET MORPHOLOGY COMMENT NORMAL (NORMAL)
[2021-06-02] MEDS: NS 1000 ML 1,000 ML IV SCH ×2 (05:40→09:45)
[2021-06-02] MEDS: DIFLUCAN 200 MG IV PREMIX* 200 MG/100 ML BAG IV SCH (08:06)
--- NOTE | 2021-06-02 09:39 | RAD ---
HISTORYCOVID-19STUDYPortable AP [id number]/12/2021FINDINGSThere is no change in appearance of the chest. Pulmonary infiltrates are similar, left lung involvement greater than right. No new consolidation, developing pleural fluid or pneumothorax seen. NG tube passes below the diaphragm, tip not included/visualized. ET tube terminates 3.8 cm above elder.IMPRESSIONNo change.Electronically signed by: ANDREW MARTINEZ (Jun 02, 2021 09:37:25)
[2021-06-02] MEDS: LACRI-LUBE S.O.P. EACHEYE SCH ×2 (09:43→21:00)
[2021-06-02] MEDS: LEVAQUIN PREMIX IV 500 MG 500 MG/100 ML BAG IV SCH (09:43)
[2021-06-02] MEDS: PEPCID 20 MG IV PREMIX* 20 MG/50 ML BAG IV SCH (09:44)
[2021-06-02] MEDS: LOVENOX INJ 40 MG SYR SC SCH ×2 (09:44→21:00)
[2021-06-02] MEDS: ASPIRIN PO SCH ×2 (09:45→21:00)
[2021-06-02] MEDS: PULMICORT NEB TX 0.5 MG NEB SCH ×2 (09:55→21:06)
[2021-06-02] MEDS: BROVANA IN SCH ×2 (09:55→21:06)
[2021-06-02] MEDS ORDERED: NS 500 ML IV 500 ML IV ONE (10:00)
--- NOTE | 2021-06-02 10:18 | PCM.PROG ---
Progress Note Progress Note for Day of Date of Exam: 06/02/21 Subjective Subjective: Pt is a 76 year old female with a past medical history of Hypertension, Seizures, CAD, admitted for COVID-19 pneumonia with hypoxia. Over the weekend patient's respiratory status acutely declined and she had to be intubated and placed on mechanical ventilator (05/31/21). Her ventilator settings are currently: A/C, RR 22, TV 400, PEEP 12, FiO2 100%. Her ABG this morning: pH 7.23, pCO2 72, pO2 57, HCO3 30, O2sat 83% on FiO2 100%. She is on a sedative and paralytic, Diprivan gtt, Norcuron gtt. She has NGT placed. Labs/imaging: Wbc 12.1, Hgb 15.1, Plt 91, Na 146, K 4.3, Creatinine 0.95, Glucose 438, CXR: Pulmonary infiltrates are similar, left lung involvement greater than right. Pt is currently on pneumonia protocol that includes: IVF NS@KVO, Remdesivir(completed), Solumedrol 125mg q6h, scheduled Bronchodilators, Antibiotics: IV Fortaz, Levaquin, immune supporting supplements, supplemental O2, SSI, I/S, Respiratory therapy consult, Pneumonia protocol. Continue to wean/titrate supplemental oxygen as tolerated. Pt w/ hyperglycemia, will taper steroids to Solumedrol 40mg BID. Continue to closely monitor and follow up labs/imaging. Critical care time spent on clinical assessment, reviewing labs and imaging, decision making, and documentation greater than 45 minutes. Past Medical Family Social History Past Med/Fam/Surg Hx: No changes since H&P Allergies: Allergies No Known Drug Allergies Allergy (Unverified 05/24/21 15:36) Review of Systems ROS: No change since H&P Vital Signs and I&O's Vital Signs: Temperature 98 F Pulse Rate [Apical] 92 Pulse Rate 116 Respiratory Rate 22 Blood Pressure [Left Arm] 149/69 Blood Pressure 179/73 O2 Sat by Pulse Oximetry 90 Intake and Output: Intake & Output 05/30/21 05/31/21 06/01/21 06/02/21 23:59 23:59 23:59 23:59 Intake Total 1120 / 1120 1768 / 1768 1792 / 1792 550 / 550 Output Total 726 / 726 2200 / 2200 775 / 775 325 / 325 Balance 394 / 394 -432 / -432 1017 / 1017 225 / 225 Physical Exam Oriented: Other (mechanical ventilator) Eyes: Normal Ear: Normal Nose: Normal Throat: Normal Respiratory: Diminished and Rales Cardiovascular: Normal : Normal Auscultation: Bowel Sounds: Normal Tenderness: Normal Skin: Normal Musculoskeletal: Normal Psychiatric: Other Speech Pattern: Artificially Ventilated Laboratory and Diagnostics Result Diagrams: 06/02/21 04:34 06/02/21 04:34 Labs: 05/27/21 09:35 Urine,Clean Catch Urine Culture - Final Laboratory WBC 12.1 X10^3/uL (3.6-10.0) H 06/02/21 04:34 RBC 4.86 X10^6/uL (3.5-5.4) 06/02/21 04:34 Hgb 15.1 g/dL (12.0-16.0) 06/02/21 04:34 Hct 44.9 % (36.0-47.0) 06/02/21 04:34 MCV 92.4 fL (80.0-100.0) 06/02/21 04:34 MCH 31.1 pg (27.0-34.0) 06/02/21 04:34 MCHC 33.6 g/dL (33.0-35.0) 06/02/21 04:34 RDW 14.1 % (11.6-16.5) 06/02/21 04:34 Plt Count 91 X10^3/uL (150.0-450.0) L 06/02/21 04:34 Plt Count Comment Decreased (ADEQUATE) A 06/02/21 04:34 MPV 9.4 fL (7.4-11.0) 06/02/21 04:34 Neut % (Auto) 95.3 % (42.0-75.0) H 06/02/21 04:34 Lymph % (Auto) 1.8 % (21.0-51.0) L 06/02/21 04:34 [place] % (Auto) 1.6 % (0.0-13.0) 06/02/21 04:34 Eos % (Auto) 1.3 % (0.9-2.9) 06/02/21 04:34 Baso % (Auto) 0 % (0.2-1.0) L 06/02/21 04:34 Neut # (Auto) 11.5 x10^3/uL (2.2-4.8) H 06/02/21 04:34 Lymph # (Auto) 0.2 X10^3/uL (1.3-2.9) L 06/02/21 04:34 [place] # (Auto) 0.2 x10^3/uL (0.3-0.8) L 06/02/21 04:34 Eos # (Auto) 0.2 x10^3/uL (0.0-0.2) 06/02/21 04:34 Baso # (Auto) 0.0 X10^3/uL (0.0-0.1) 06/02/21 04:34 Absolute Nucleated RBC 0.1 /100WBC 06/02/21 04:34 Total Counted 100 06/02/21 04:34 Neutrophils % (Manual) 93 % (39-76) H 06/02/21 04:34 Band Neutrophils % 1 % (0-10) 06/02/21 04:34 Lymphocytes % (Manual) 5 % (13-43) L 06/02/21 04:34 Monocytes % (Manual) 1 % (4-9) L 06/02/21 04:34 Eosinophils % (Manual) Cancelled 05/31/21 04:08 Basophils % (Manual) Cancelled 05/31/21 04:08 Metamyelocytes % Cancelled 05/31/21 04:08 Myelocytes % Cancelled 05/31/21 04:08 Promyelocytes % Cancelled 05/31/21 04:08 Nucleated RBCs Cancelled 05/31/21 04:08 Atypical Lymphocytes Cancelled 05/31/21 04:08 Blast Cells Cancelled 05/31/21 04:08 Smudge Cells Cancelled 05/31/21 04:08 Toxic Granulation Cancelled 05/31/21 04:08 Dohle Bodies Cancelled 05/31/21 04:08 Jose Rods Cancelled 05/31/21 04:08 Plt Clumps, EDTA Cancelled 05/31/21 04:08 Giant Platelets Cancelled 05/31/21 04:08 Plt Morphology Comment Normal (NORMAL) 06/02/21 04:34 RBC Morphology Normal (NORMAL) 06/02/21 04:34 Dimorphic RBCs Cancelled 05/31/21 04:08 Polychromasia Cancelled 05/31/21 04:08 Hypochromasia Cancelled 05/31/21 04:08 Poikilocytosis Cancelled 05/31/21 04:08 Basophilic Stippling Cancelled 05/31/21 04:08 Anisocytosis Cancelled 05/31/21 04:08 Microcytosis Cancelled 05/31/21 04:08 Macrocytosis Cancelled 05/31/21 04:08 Spherocytes Cancelled 05/31/21 04:08 Pappenheimer Bodies Cancelled 05/31/21 04:08 Sickle Cells Cancelled 05/31/21 04:08 Target Cells Cancelled 05/31/21 04:08 Tear Drop Cells Cancelled 05/31/21 04:08 Ovalocytes Cancelled 05/31/21 04:08 Stomatocytes Cancelled 05/31/21 04:08 Helmet Cells Cancelled 05/31/21 04:08 Bravo-Byng Bodies Cancelled 05/31/21 04:08 Baker Rings Cancelled 05/31/21 04:08 Paul Cells Cancelled 05/31/21 04:08 Crenated Cell Cancelled 05/31/21 04:08 Acanthocytes (Spur) Cancelled 05/31/21 04:08 Rouleaux Cancelled 05/31/21 04:08 Schistocytes Cancelled 05/31/21 04:08 D-Dimer 1.92 ug/ml (0.0-0.57) H* 05/24/21 15:51 Sample Site Rr 06/02/21 05:00 ABG pH 7.230 (7.35-7.45) L 06/02/21 05:00 ABG pCO2 72.0 mmHg (35.0-45.0) H* 06/02/21 05:00 ABG pO2 57.0 mmHg (80.0-100.0) L 06/02/21 05:00 ABG HCO3 30.2 mmol/L (22-26) H* 06/02/21 05:00 ABG O2 Saturation 83.0 % (90-100) L* 06/02/21 05:00 ABG Base Excess 0.9 mmol/L (-2.0-2.0) 06/02/21 05:00 Kane Test Pos 06/02/21 05:00 A-a Gradient 566.0 mmHg 06/02/21 05:00 FiO2 100.0 06/02/21 05:00 Blood Gas Comments Chapo well sw 06/02/21 05:00 Sodium 146 mmol/L (136-145) H 06/02/21 04:34 Corrected Sodium 154 mmol/L (136-145) H 06/02/21 04:34 Potassium 4.3 mmol/L (3.5-5.1) 06/02/21 04:34 Chloride 107 mmol/L (98-107) 06/02/21 04:34 Carbon Dioxide 27.1 mmol/L (21-32) 06/02/21 04:34 BUN 30 mg/dL (7-18) H 06/02/21 04:34 Creatinine 0.95 mg/dL (0.55-1.02) 06/02/21 04:34 Est GFR (MDRD) Af Amer > 60 (>60) 06/02/21 04:34 Est GFR (MDRD) Non-Af > 60 (>60) 06/02/21 04:34 Glucose 438 mg/dL (65-99) H 06/02/21 04:34 POC Glucose (mg/dL) 209 mg/dL (65-99) H 05/29/21 16:20 Calcium 8.1 mg/dL (8.5-10.1) L 06/02/21 04:34 Corrected Calcium 9.6 mg/dL (8.5-10.1) 06/02/21 04:34 Magnesium 2.1 mg/dL (1.7-2.9) 05/29/21 05:37 Ferritin 1286 ng/mL (8-252) H 05/24/21 15:51 Total Bilirubin 0.50 mg/dL (0.2-1.0) 06/02/21 04:34 AST 19 Units/L (15-37) 06/02/21 04:34 ALT 28 Units/L (12-78) 06/02/21 04:34 Alkaline Phosphatase 104 Units/L (46-116) 06/02/21 04:34 C-Reactive Protein 52.10 mg/L (0-3.0) H 05/31/21 04:08 B-Natriuretic Peptide 95.6 pg/mL (0-79) H 05/24/21 15:51 Total Protein 5.6 g/dL (6.4-8.2) L 06/02/21 04:34 Albumin 2.1 g/dL (3.4-5.0) L 06/02/21 04:34 Globulin 3.5 g/dL (2.5-4.5) 06/02/21 04:34 Albumin/Globulin Ratio 0.6 Ratio (1.1-2.1) L 06/02/21 04:34 Specimen Type Catherized urine 05/27/21 09:35 Urine Color Yellow (YELLOW) 05/27/21 09:35 Urine Appearance Clear (CLEAR) 05/27/21 09:35 Urine pH 6.0 (5.0 - 8.0) 05/27/21 09:35 Ur Specific [place] 1.020 (1.000-1.030) 05/27/21 09:35 Urine Protein 2+ (NEGATIVE) 05/27/21 09:35 Urine Glucose (UA) 3+ (NEGATIVE) 05/27/21 09:35 Urine Ketones Negative (NEGATIVE) 05/27/21 09:35 Urine Occult Blood 2+ (NEGATIVE) 05/27/21 09:35 Urine Nitrite Negative (NEGATIVE) 05/27/21 09:35 Urine Bilirubin Negative (NEGATIVE) 05/27/21 09:35 Urine Urobilinogen Normal (NORMAL) 05/27/21 09:35 Ur Leukocyte Esterase Negative (NEGATIVE) 05/27/21 09:35 Urine RBC 0-2 /HPF (0-3) 05/27/21 09:35 Urine WBC 0-2 /HPF (0-5) 05/27/21 09:35 Ur Squamous Epith Cells Few /HPF (NEGATIVE) 05/27/21 09:35 Urine Bacteria Trace /HPF (NEGATIVE) 05/27/21 09:35 Hyaline Casts Few /LPF (NEGATIVE) 05/27/21 09:35 Ur Culture Indicated? Yes/culture set up 05/27/21 09:35 SARS CoV-2 RNA Rapid TITA Positive (NEGATIVE) A 05/24/21 17:26 Plan (1) Pneumonia due to COVID-19 virus: Status: Acute Plan: -pneumonia protocol
[2021-06-02] MEDS: HumuLIN R SUBCUT PRN ×3 (11:50→23:15)
--- NOTE | 2021-06-02 12:21 | DR.UPDATE ---
H&P Update History and Physical Update: History and Physical reviewed and patient examined. Changes noted: NO Yes with the following:will place art line H&P Reviewed: Yes Patient was examined?: Yes Procedures (ALL) - Arterial Line Consent obtained: written consent Time out performed: Yes Size(gauge): 20 Technique used: guided wire technique Post-procedure: dry sterile dressing placed Patient tolerated procedure: Yes Site: right, radial
[2021-06-02] MEDS: NORCURON INJ 10 MG VIAL 50 MG in NS 50 ML IV 50 ML IV PRN (13:30)
[2021-06-02] MEDS ORDERED: LOPRESSOR TAB 25 MG PO ONE (15:27)
[2021-06-02] MEDS: NS IV SCH (16:55)
[2021-06-02] MEDS: CEREBYX IV SCH (16:55)
[2021-06-02] MEDS: SOLU-Medrol 40 MG VIAL IVP SCH (21:00)
[2021-06-02] MEDS: MELATONIN PO SCH (21:00)
[2021-06-02] MEDS: NORVASC TAB 10 MG PO SCH (22:47)
[2021-06-03] MEDS: HumuLIN R SUBCUT PRN ×4 (03:30→21:00)
[2021-06-03 04:36] LABS: ABG BASE EXCESS 3.8 mmol/L (-2.0-2.0)
[2021-06-03 05:12] LABS: BASOPHILS % (AUTO) 0.3 % (0.2-1.0); EOSINOPHILS % (AUTO) 0.1 % (0.9-2.9); HEMATOCRIT 42.8 % (36.0-47.0); HEMOGLOBIN 14.2 g/dL (12.0-16.0); LYMPHOCYTES # (AUTO) 0.2 X10^3/uL (1.3-2.9); LYMPHOCYTES % (AUTO) 1.5 % (21.0-51.0); MEAN CORPUSCULAR HEMOGLOBIN 30.5 pg (27.0-34.0); MEAN CORPUSCULAR HGB CONC 33.1 g/dL (33.0-35.0); MONOCYTES # (AUTO) 0.6 x10^3/uL (0.3-0.8); MONOCYTES % (AUTO) 3.7 % (0.0-13.0); NEUTROPHILS % (AUTO) 94.4 % (42.0-75.0); PLATELET COUNT 68 X10^3/uL (150.0-450.0); RED BLOOD COUNT 4.65 X10^6/uL (3.5-5.4); RED CELL DISTRIBUTION WIDTH 14.3 % (11.6-16.5); WHITE BLOOD COUNT 14.9 X10^3/uL (3.6-10.0)
[2021-06-03 05:31] LABS: ALBUMIN 1.8 g/dL (3.4-5.0); CALCIUM 8.2 mg/dL (8.5-10.1); CARBON DIOXIDE 30.9 mmol/L (21-32); CREATININE 1.53 mg/dL (0.55-1.02)
[2021-06-03 05:41] LABS: PLATELET MORPHOLOGY COMMENT NORMAL (NORMAL)
[2021-06-03] MEDS: BUTT CREAM (COMPOUND) TOP SCH ×3 (06:09→21:00)
[2021-06-03] MEDS: NS 1000 ML 1,000 ML IV SCH (06:09)
[2021-06-03] MEDS: FORTAZ or TAZICEF VIAL INJ 1 G in NS 100 ML IV + SPIKE MINIBAG* 100 ML IV SCH ×3 (06:10→21:00)
[2021-06-03] MEDS: NYSTATIN CREAM TOP SCH ×3 (06:10→21:00)
[2021-06-03] MEDS: NYSTATIN POWDER TOP SCH ×3 (06:10→21:00)
[2021-06-03] MEDS: NORCURON INJ 10 MG VIAL 50 MG in NS 50 ML IV 50 ML IV PRN (06:20)
--- NOTE | 2021-06-03 06:48 | RAD ---
HISTORYSOB, COVID+STUDYCHEST, 1 [id number]/13/2021.TECHNIQUEAP view of the chestFINDINGSET tube in good position. NG tube courses below the visualized field of view. Cardiac and mediastinal contours are within normal limits. Lungs are hyperexpanded. Similar appearance of diffuse bilateral interstitial opacities. No discernible pleural effusion or pneumothorax.IMPRESSIONNo significant change. Emphysema with diffuse bilateral interstitial opacities suspicious for superimposed COVID 19 as stated in the indication.Electronically signed by: Imer Manning (Jun 03, 2021 06:47:12)
[2021-06-03] MEDS: PULMICORT NEB TX 0.5 MG NEB SCH ×2 (08:24→21:18)
[2021-06-03] MEDS: BROVANA IN SCH ×2 (08:24→21:18)
[2021-06-03] MEDS ORDERED: LOPRESSOR TAB 25 MG PO SCH (09:00)
[2021-06-03] MEDS: LACRI-LUBE S.O.P. EACHEYE SCH ×2 (09:41→21:00)
[2021-06-03] MEDS: SOLU-Medrol 40 MG VIAL IVP SCH (09:41)
[2021-06-03] MEDS: LEVAQUIN PREMIX IV 500 MG 500 MG/100 ML BAG IV SCH (09:41)
[2021-06-03] MEDS: ASPIRIN PO SCH (09:54)
[2021-06-03] MEDS ORDERED: NS 1/2 1000 ML IV 1,000 ML IV ONE (09:58)
[2021-06-03] MEDS: NS 1/2 1000 ML IV 1,000 ML IV SCH ×2 (10:02→22:39)
[2021-06-03] MEDS: LOVENOX INJ 40 MG SYR SC SCH ×2 (10:02→21:00)
--- NOTE | 2021-06-03 12:52 | PCM.PROG ---
Progress Note Progress Note for Day of Date of Exam: 06/03/21 Subjective Subjective: Pt is a 76 year old female with a past medical history of Hypertension, Seizures, CAD, admitted for COVID-19 pneumonia with hypoxia. During her hospital course she had acute respiratory failure, and was intubated and was placed on mechanical ventilator on (05/31/21). Her ventilator settings a re currently: A/C, RR 25, TV 400, PEEP 14, FiO2 100%. Her ABG this morning: pH 7.30, pCO2 65, pO2 121, HCO3 32, O2sat 98% on FiO2 100%. She is on a sedative and paralytic, Diprivan gtt, Norcuron gtt. She has NGT placed. Labs/imaging: Wbc 14.9, Hgb 14.2, Plt 68, Na 146, K 4.7, Creatinine 1.53, Glucose 404, AST 2898, ALT 1340, ALKP 86, CXR: No significant change. Emphysema with diffuse bilateral interstitial opacities suspicious for superimposed COVID 19 as stated in the indication. Pt is currently on pneumonia protocol that includes: IVF NS@KVO, Remdesivir(completed), IV Solumedrol 40mg BID, scheduled Bronchodilators, Antibiotics: IV Fortaz, Levaquin, immune supporting supplements, supplemental O2, SSI, I/S, Respiratory therapy consult, Pneumonia protocol. Continue to wean/titrate supplemental oxygen as tolerated. Will change and increase IVF to 1/2NS@75ml/h due to elevated creatinine. Pt continues to have hyperglycemia, will hold any further steroid doses to help bring hyperglycemia under better control. Concern now as liver enzymes are elevated. Discussed prognosis with son. Good oxygenation this morning on ABG, adjust PEEP settings. Continue to closely monitor and follow up labs/imaging. Critical care time spent on clinical assessment, reviewing labs and imaging, decision making, and documentation greater than 45 minutes. Past Medical Family Social History Past Med/Fam/Surg Hx: No changes since H&P Allergies: Allergies No Known Drug Allergies Allergy (Unverified 05/24/21 15:36) Review of Systems ROS: No change since H&P Vital Signs and I&O's Vital Signs: Temperature 97 F Pulse Rate [Apical] 92 Pulse Rate 105 Respiratory Rate 25 Blood Pressure [Left Arm] 149/69 Blood Pressure 144/74 O2 Sat by Pulse Oximetry 90 Intake and Output: Intake & Output 05/31/21 06/01/21 06/02/21 06/03/21 23:59 23:59 23:59 23:59 Intake Total 1768 / 1768 1792 / 1792 2244 / 2244 384 / 384 Output Total 2200 / 2200 775 / 775 925 / 925 100 / 100 Balance -432 / -432 1017 / 1017 1319 / 1319 284 / 284 Physical Exam Oriented: Other (mechanical ventilator) Eyes: Normal Ear: Normal Nose: Normal Throat: Normal Respiratory: Diminished and Rales Cardiovascular: Normal : Normal Auscultation: Bowel Sounds: Normal Tenderness: Normal Skin: Normal Musculoskeletal: Normal Psychiatric: Other Mood Description: Calm and Appropriate Affect: Normal Speech Pattern: Artificially Ventilated Laboratory and Diagnostics Result Diagrams: 06/03/21 04:39 06/03/21 04:39 Labs: 05/27/21 09:35 Urine,Clean Catch Urine Culture - Final Laboratory WBC 14.9 X10^3/uL (3.6-10.0) H 06/03/21 04:39 RBC 4.65 X10^6/uL (3.5-5.4) 06/03/21 04:39 Hgb 14.2 g/dL (12.0-16.0) 06/03/21 04:39 Hct 42.8 % (36.0-47.0) 06/03/21 04:39 MCV 92.0 fL (80.0-100.0) 06/03/21 04:39 MCH 30.5 pg (27.0-34.0) 06/03/21 04:39 MCHC 33.1 g/dL (33.0-35.0) 06/03/21 04:39 RDW 14.3 % (11.6-16.5) 06/03/21 04:39 Plt Count 68 X10^3/uL (150.0-450.0) L 06/03/21 04:39 Plt Count Comment Decreased (ADEQUATE) A 06/03/21 04:39 MPV 10.0 fL (7.4-11.0) 06/03/21 04:39 Neut % (Auto) 94.4 % (42.0-75.0) H 06/03/21 04:39 Lymph % (Auto) 1.5 % (21.0-51.0) L 06/03/21 04:39 [place] % (Auto) 3.7 % (0.0-13.0) 06/03/21 04:39 Eos % (Auto) 0.1 % (0.9-2.9) L 06/03/21 04:39 Baso % (Auto) 0.3 % (0.2-1.0) 06/03/21 04:39 Neut # (Auto) 14.0 x10^3/uL (2.2-4.8) H 06/03/21 04:39 Lymph # (Auto) 0.2 X10^3/uL (1.3-2.9) L 06/03/21 04:39 [place] # (Auto) 0.6 x10^3/uL (0.3-0.8) 06/03/21 04:39 Eos # (Auto) 0.0 x10^3/uL (0.0-0.2) 06/03/21 04:39 Baso # (Auto) 0.0 X10^3/uL (0.0-0.1) 06/03/21 04:39 Absolute Nucleated RBC 0.1 /100WBC 06/03/21 04:39 Total Counted 100 06/03/21 04:39 Neutrophils % (Manual) 93 % (39-76) H 06/03/21 04:39 Band Neutrophils % 1 % (0-10) 06/02/21 04:34 Lymphocytes % (Manual) 3 % (13-43) L 06/03/21 04:39 Monocytes % (Manual) 4 % (4-9) 06/03/21 04:39 Eosinophils % (Manual) Cancelled 05/31/21 04:08 Basophils % (Manual) Cancelled 05/31/21 04:08 Metamyelocytes % Cancelled 05/31/21 04:08 Myelocytes % Cancelled 05/31/21 04:08 Promyelocytes % Cancelled 05/31/21 04:08 Nucleated RBCs Cancelled 05/31/21 04:08 Atypical Lymphocytes Cancelled 05/31/21 04:08 Blast Cells Cancelled 05/31/21 04:08 Smudge Cells Cancelled 05/31/21 04:08 Toxic Granulation Cancelled 05/31/21 04:08 Dohle Bodies Cancelled 05/31/21 04:08 Jose Rods Cancelled 05/31/21 04:08 Plt Clumps, EDTA Cancelled 05/31/21 04:08 Giant Platelets Cancelled 05/31/21 04:08 Plt Morphology Comment Normal (NORMAL) 06/03/21 04:39 RBC Morphology Normal (NORMAL) 06/03/21 04:39 Dimorphic RBCs Cancelled 05/31/21 04:08 Polychromasia Cancelled 05/31/21 04:08 Hypochromasia Cancelled 05/31/21 04:08 Poikilocytosis Cancelled 05/31/21 04:08 Basophilic Stippling Cancelled 05/31/21 04:08 Anisocytosis Cancelled 05/31/21 04:08 Microcytosis Cancelled 05/31/21 04:08 Macrocytosis Cancelled 05/31/21 04:08 Spherocytes Cancelled 05/31/21 04:08 Pappenheimer Bodies Cancelled 05/31/21 04:08 Sickle Cells Cancelled 05/31/21 04:08 Target Cells Cancelled 05/31/21 04:08 Tear Drop Cells Cancelled 05/31/21 04:08 Ovalocytes Cancelled 05/31/21 04:08 Stomatocytes Cancelled 05/31/21 04:08 Helmet Cells Cancelled 05/31/21 04:08 [place]ravo[place] Bodies Cancelled 05/31/21 04:08 [place] Rings Cancelled 05/31/21 04:08 Paul Cells Cancelled 05/31/21 04:08 Crenated Cell Cancelled 05/31/21 04:08 Acanthocytes (Spur) Cancelled 05/31/21 04:08 Rouleaux Cancelled 05/31/21 04:08 Schistocytes Cancelled 05/31/21 04:08 D-Dimer 1.92 ug/ml (0.0-0.57) H* 05/24/21 15:51 Sample Site Art-line 06/03/21 04:34 ABG pH 7.300 (7.35-7.45) L 06/03/21 04:34 ABG pCO2 65.0 mmHg (35.0-45.0) H* 06/03/21 04:34 ABG pO2 121.0 mmHg (80.0-100.0) H 06/03/21 04:34 ABG HCO3 32.0 mmol/L (22-26) H* 06/03/21 04:34 ABG O2 Saturation 98.0 % (90-100) 06/03/21 04:34 ABG Base Excess 3.8 mmol/L (-2.0-2.0) H 06/03/21 04:34 Kane Test Na 06/03/21 04:34 A-a Gradient 511.0 mmHg 06/03/21 04:34 FiO2 100.0 06/03/21 04:34 Blood Gas Comments [place] well-mtf 06/03/21 04:34 Sodium 146 mmol/L (136-145) H 06/03/21 04:39 Corrected Sodium 153 mmol/L (136-145) H 06/03/21 04:39 Potassium 4.7 mmol/L (3.5-5.1) 06/03/21 04:39 Chloride 111 mmol/L (98-107) H 06/03/21 04:39 Carbon Dioxide 30.9 mmol/L (21-32) 06/03/21 04:39 BUN 56 mg/dL (7-18) H 06/03/21 04:39 Creatinine 1.53 mg/dL (0.55-1.02) H 06/03/21 04:39 Est GFR (MDRD) Af Amer 42 (>60) L 06/03/21 04:39 Est GFR (MDRD) Non-Af 35 (>60) L 06/03/21 04:39 Glucose 404 mg/dL (65-99) H 06/03/21 04:39 POC Glucose (mg/dL) 271 mg/dL (65-99) H 06/03/21 11:22 Calcium 8.2 mg/dL (8.5-10.1) L 06/03/21 04:39 Corrected Calcium 10.0 mg/dL (8.5-10.1) 06/03/21 04:39 Magnesium 2.1 mg/dL (1.7-2.9) 05/29/21 05:37 Ferritin 1286 ng/mL (8-252) H 05/24/21 15:51 Total Bilirubin 0.40 mg/dL (0.2-1.0) 06/03/21 04:39 AST 2898 Units/L (15-37) H 06/03/21 04:39 ALT 1340 Units/L (12-78) H 06/03/21 04:39 Alkaline Phosphatase 86 Units/L (46-116) 06/03/21 04:39 C-Reactive Protein 52.10 mg/L (0-3.0) H 05/31/21 04:08 B-Natriuretic Peptide 95.6 pg/mL (0-79) H 05/24/21 15:51 Total Protein 5.0 g/dL (6.4-8.2) L 06/03/21 04:39 Albumin 1.8 g/dL (3.4-5.0) L 06/03/21 04:39 Globulin 3.2 g/dL (2.5-4.5) 06/03/21 04:39 Albumin/Globulin Ratio 0.6 Ratio (1.1-2.1) L 06/03/21 04:39 Specimen Type Catherized urine 05/27/21 09:35 Urine Color Yellow (YELLOW) 05/27/21 09:35 Urine Appearance Clear (CLEAR) 05/27/21 09:35 Urine pH 6.0 (5.0 - 8.0) 05/27/21 09:35 Ur Specific [place] 1.020 (1.000-1.030) 05/27/21 09:35 Urine Protein 2+ (NEGATIVE) 05/27/21 09:35 Urine Glucose (UA) 3+ (NEGATIVE) 05/27/21 09:35 Urine Ketones Negative (NEGATIVE) 05/27/21 09:35 Urine Occult Blood 2+ (NEGATIVE) 05/27/21 09:35 Urine Nitrite Negative (NEGATIVE) 05/27/21 09:35 Urine Bilirubin Negative (NEGATIVE) 05/27/21 09:35 Urine Urobilinogen Normal (NORMAL) 05/27/21 09:35 Ur Leukocyte Esterase Negative (NEGATIVE) 05/27/21 09:35 Urine RBC 0-2 /HPF (0-3) 05/27/21 09:35 Urine WBC 0-2 /HPF (0-5) 05/27/21 09:35 Ur Squamous Epith Cells Few /HPF (NEGATIVE) 05/27/21 09:35 Urine Bacteria Trace /HPF (NEGATIVE) 05/27/21 09:35 Hyaline Casts Few /LPF (NEGATIVE) 05/27/21 09:35 Ur Culture Indicated? Yes/culture set up 05/27/21 09:35 SARS CoV-2 RNA Rapid TITA Positive (NEGATIVE) A 05/24/21 17:26 Plan (1) Pneumonia due to COVID-19 virus: Status: Acute Plan: -pneumonia protocol
[2021-06-03] MEDS: NS IV SCH (15:59)
[2021-06-03] MEDS: CEREBYX IV SCH (15:59)
[2021-06-03] MEDS: MELATONIN PO SCH (21:00)
[2021-06-03] MEDS: NORVASC TAB 10 MG PO SCH (22:06)
[2021-06-04] MEDS: NORCURON INJ 10 MG VIAL 50 MG in NS 50 ML IV 50 ML IV PRN ×2 (01:10→08:27)
[2021-06-04] MEDS: DIPRIVAN PREMIX 1 GRAM IV 1,000 MG/100 ML VIAL IV PRN (01:25)
[2021-06-04] MEDS ORDERED: NS 1/2 1000 ML IV 1,000 ML IV ONE ×2 (03:59→17:07)
[2021-06-04 04:38] LABS: ABG BASE EXCESS 2.2 mmol/L (-2.0-2.0)
[2021-06-04 04:40] LABS: ABG HCO3 30.3 mmol/L (22-26)
[2021-06-04 05:55] LABS: BASOPHILS % (AUTO) 0.2 % (0.2-1.0); HEMATOCRIT 43.3 % (36.0-47.0); HEMOGLOBIN 14.2 g/dL (12.0-16.0); LYMPHOCYTES # (AUTO) 0.9 X10^3/uL (1.3-2.9); LYMPHOCYTES % (AUTO) 4.7 % (21.0-51.0); MEAN CORPUSCULAR HEMOGLOBIN 30.2 pg (27.0-34.0); MEAN CORPUSCULAR HGB CONC 32.7 g/dL (33.0-35.0); MEAN CORPUSCULAR VOLUME 92.2 fL (80.0-100.0); MEAN PLATELET VOLUME 11.2 fL (7.4-11.0); MONOCYTES # (AUTO) 1.1 x10^3/uL (0.3-0.8); MONOCYTES % (AUTO) 5.4 % (0.0-13.0); NEUTROPHILS # (AUTO) 17.8 x10^3/uL (2.2-4.8); NEUTROPHILS % (AUTO) 89.7 % (42.0-75.0); PLATELET COUNT 54 X10^3/uL (150.0-450.0); RED BLOOD COUNT 4.69 X10^6/uL (3.5-5.4); RED CELL DISTRIBUTION WIDTH 14.2 % (11.6-16.5); WHITE BLOOD COUNT 19.8 X10^3/uL (3.6-10.0)
[2021-06-04 06:04] LABS: ALBUMIN 1.8 g/dL (3.4-5.0); COR CA(FOR HYPOALB) 9.8 mg/dL (8.5-10.1); CREATININE 1.31 mg/dL (0.55-1.02); TOTAL PROTEIN 5.1 g/dL (6.4-8.2)
[2021-06-04] MEDS ORDERED: LEVOPHED INJ ONE (06:07)
[2021-06-04] MEDS ORDERED: D5W 250 ML IV 250 ML IV ONE (06:08)
[2021-06-04 06:20] LABS: BAND NEUTROPHILS % 1 % (0-10); PLATELET MORPHOLOGY COMMENT NORMAL (NORMAL)
[2021-06-04] MEDS: LEVOPHED INJ 8 MG in D5W 250 ML IV 242 ML IV PRN ×3 (06:20→22:39)
[2021-06-04] MEDS: BUTT CREAM (COMPOUND) TOP SCH ×3 (06:43→21:41)
[2021-06-04] MEDS: FORTAZ or TAZICEF VIAL INJ 1 G in NS 100 ML IV + SPIKE MINIBAG* 100 ML IV SCH ×3 (06:43→21:42)
[2021-06-04] MEDS: NYSTATIN CREAM TOP SCH ×3 (06:44→21:42)
[2021-06-04] MEDS: NYSTATIN POWDER TOP SCH ×3 (06:45→21:42)
[2021-06-04] MEDS: NS 1/2 1000 ML IV 1,000 ML IV SCH ×2 (06:46→17:25)
--- NOTE | 2021-06-04 06:49 | RAD ---
HISTORYSOB, COVID+STUDYCHEST, 1 VIEWCOMPARISONOne day prior.TECHNIQUEAP view of the chestFINDINGSLow lying ET tube projects 1.5 cm from the elder. NG tube courses below the visualized field of view. Lungs are hyperexpanded. No significant change in bilateral airspace and interstitial opacities. Patient is rotated.The cardiac and mediastinal contours appear stable. Blunted costophrenic sulci may represent small pleural effusions or pleural scarring.IMPRESSIONLow lying ET tube. Recommend at least 2 cm retraction. No significant change in pulmonary opacities.Electronically signed by: Imer Manning (Jun 04, 2021 06:47:50)
[2021-06-04] MEDS: HumuLIN R SUBCUT PRN ×2 (06:51→12:06)
[2021-06-04] MEDS: LEVAQUIN PREMIX IV 500 MG 500 MG/100 ML BAG IV SCH (08:26)
[2021-06-04] MEDS: LACRI-LUBE S.O.P. EACHEYE SCH ×2 (08:26→21:40)
[2021-06-04] MEDS: PULMICORT NEB TX 0.5 MG NEB SCH ×2 (08:35→20:36)
[2021-06-04] MEDS: BROVANA IN SCH ×2 (08:35→20:36)
--- NOTE | 2021-06-04 08:52 | PCM.PROG ---
Progress Note Progress Note for Day of Date of Exam: 06/04/21 Subjective Subjective: Pt is a 76 year old female with a past medical history of Hypertension, Seizures, COPD, CAD, admitted for COVID-19 pneumonia with hypoxia. During her hospital course she had acute respiratory failure, and was intubated and placed on mechanical ventilator on (05/31/21). Overnight she became hy potensive with a MAP 55, Levophed gtt was ordered and started at 5mcg/min. Her BP has stabilized. Her ventilator settings are currently: A/C, RR 25, TV 400, PEEP 14, FiO2 100%. Her ABG this morning: pH 7.29, pCO2 63, pO2 85, HCO3 30, O2sat 95% on FiO2 100%. She is on a sedative and paralytic, Diprivan gtt, Norcuron gtt. She has NGT placed. Labs/imaging: Wbc 19.8, Hgb 14.2, Plt 54, Na 144, K 5.4, Creatinine 1.31, Glucose 237, AST 799, ALT 888, ALKP 86, CXR: Low lying ET tube. Recommend at least 2 cm retraction. No significant change in pulmonary opacities. Pt is currently on pneumonia protocol that includes: IVF 1/2NS@80ml/h, Remdesivir(completed), IV Solumedrol 40mg(hold), scheduled Bronchodilators, Antibiotics: IV Fortaz, Levaquin, immune supporting supplements, supplemental O2, SSI, I/S, Respiratory therapy consult, Pneumonia protocol. Continue to wean/titrate supplemental oxygen as tolerated. Hyperglycemia, under better control while holding solumedrol. Renal function improving. Liver enzymes trending down. Leukocytosis not improving, will start on vancomycin. Otherwise continue with current treatment plan. Closely monitor and follow up labs/imaging. Critical care time spent on clinical assessment, reviewing labs and imaging, decision making, and documentation greater than 45 minutes. Past Medical Family Social History Past Med/Fam/Surg Hx: No changes since H&P Allergies: Allergies No Known Drug Allergies Allergy (Unverified 05/24/21 15:36) Review of Systems ROS: No change since H&P Vital Signs and I&O's Vital Signs: Temperature 98.3 F Pulse Rate [Apical] 92 Pulse Rate 113 Respiratory Rate 25 Blood Pressure [Left Arm] 149/69 Blood Pressure 103/55 O2 Sat by Pulse Oximetry 97 Intake and Output: Intake & Output 06/01/21 06/02/21 06/03/21 06/04/21 23:59 23:59 23:59 23:59 Intake Total 1792 / 1792 2244 / 2244 2646 / 2646 957 / 957 Output Total 775 / 775 925 / 925 525 / 525 200 / 200 Balance 1017 / 1017 1319 / 1319 2121 / 2121 757 / 757 Physical Exam Oriented: Other (mechanical ventilator) Eyes: Normal Ear: Normal Nose: Normal Throat: Normal Respiratory: Diminished and Rales Cardiovascular: Normal : Normal Auscultation: Bowel Sounds: Normal Tenderness: Normal Skin: Normal Musculoskeletal: Normal Psychiatric: Other Mood Description: Calm and Appropriate Affect: Normal Speech Pattern: Artificially Ventilated Laboratory and Diagnostics Result Diagrams: 06/04/21 05:12 06/04/21 05:12 Labs: 05/27/21 09:35 Urine,Clean Catch Urine Culture - Final Laboratory WBC 19.8 X10^3/uL (3.6-10.0) H 06/04/21 05:12 RBC 4.69 X10^6/uL (3.5-5.4) 06/04/21 05:12 Hgb 14.2 g/dL (12.0-16.0) 06/04/21 05:12 Hct 43.3 % (36.0-47.0) 06/04/21 05:12 MCV 92.2 fL (80.0-100.0) 06/04/21 05:12 MCH 30.2 pg (27.0-34.0) 06/04/21 05:12 MCHC 32.7 g/dL (33.0-35.0) L 06/04/21 05:12 RDW 14.2 % (11.6-16.5) 06/04/21 05:12 Plt Count 54 X10^3/uL (150.0-450.0) L 06/04/21 05:12 Plt Count Comment Decreased (ADEQUATE) A 06/04/21 05:12 MPV 11.2 fL (7.4-11.0) H 06/04/21 05:12 Neut % (Auto) 89.7 % (42.0-75.0) H 06/04/21 05:12 Lymph % (Auto) 4.7 % (21.0-51.0) L 06/04/21 05:12 [place] % (Auto) 5.4 % (0.0-13.0) 06/04/21 05:12 Eos % (Auto) 0.0 % (0.9-2.9) L 06/04/21 05:12 Baso % (Auto) 0.2 % (0.2-1.0) 06/04/21 05:12 Neut # (Auto) 17.8 x10^3/uL (2.2-4.8) H 06/04/21 05:12 Lymph # (Auto) 0.9 X10^3/uL (1.3-2.9) L 06/04/21 05:12 [place] # (Auto) 1.1 x10^3/uL (0.3-0.8) H 06/04/21 05:12 Eos # (Auto) 0.0 x10^3/uL (0.0-0.2) 06/04/21 05:12 Baso # (Auto) 0.0 X10^3/uL (0.0-0.1) 06/04/21 05:12 Absolute Nucleated RBC 0.3 /100WBC 06/04/21 05:12 Total Counted 100 06/04/21 05:12 Neutrophils % (Manual) 87 % (39-76) H 06/04/21 05:12 Band Neutrophils % 1 % (0-10) 06/04/21 05:12 Lymphocytes % (Manual) 7 % (13-43) L 06/04/21 05:12 Monocytes % (Manual) 5 % (4-9) 06/04/21 05:12 Eosinophils % (Manual) Cancelled 05/31/21 04:08 Basophils % (Manual) Cancelled 05/31/21 04:08 Metamyelocytes % Cancelled 05/31/21 04:08 Myelocytes % Cancelled 05/31/21 04:08 Promyelocytes % Cancelled 05/31/21 04:08 Nucleated RBCs Cancelled 05/31/21 04:08 Atypical Lymphocytes Cancelled 05/31/21 04:08 Blast Cells Cancelled 05/31/21 04:08 Smudge Cells Cancelled 05/31/21 04:08 Toxic Granulation Cancelled 05/31/21 04:08 Dohle Bodies Cancelled 05/31/21 04:08 Jose Rods Cancelled 05/31/21 04:08 Plt Clumps, EDTA Cancelled 05/31/21 04:08 Giant Platelets Cancelled 05/31/21 04:08 Plt Morphology Comment Normal (NORMAL) 06/04/21 05:12 RBC Morphology Normal (NORMAL) 06/04/21 05:12 Dimorphic RBCs Cancelled 05/31/21 04:08 Polychromasia Cancelled 05/31/21 04:08 Hypochromasia Cancelled 05/31/21 04:08 Poikilocytosis Cancelled 05/31/21 04:08 Basophilic Stippling Cancelled 05/31/21 04:08 Anisocytosis Cancelled 05/31/21 04:08 Microcytosis Cancelled 05/31/21 04:08 Macrocytosis Cancelled 05/31/21 04:08 Spherocytes Cancelled 05/31/21 04:08 Pappenheimer Bodies Cancelled 05/31/21 04:08 Sickle Cells Cancelled 05/31/21 04:08 Target Cells Cancelled 05/31/21 04:08 Tear Drop Cells Cancelled 05/31/21 04:08 Ovalocytes Cancelled 05/31/21 04:08 Stomatocytes Cancelled 05/31/21 04:08 Helmet Cells Cancelled 05/31/21 04:08 [place] Bodies Cancelled 05/31/21 04:08 [place] Rings Cancelled 05/31/21 04:08 Paul Cells Cancelled 05/31/21 04:08 Crenated Cell Cancelled 05/31/21 04:08 Acanthocytes (Spur) Cancelled 05/31/21 04:08 Rouleaux Cancelled 05/31/21 04:08 Schistocytes Cancelled 05/31/21 04:08 D-Dimer 1.92 ug/ml (0.0-0.57) H* 05/24/21 15:51 Sample Site Art-line 06/04/21 04:34 ABG pH 7.290 (7.35-7.45) L 06/04/21 04:34 ABG pCO2 63.0 mmHg (35.0-45.0) H* 06/04/21 04:34 ABG pO2 85.0 mmHg (80.0-100.0) 06/04/21 04:34 ABG HCO3 30.3 mmol/L (22-26) H* 06/04/21 04:34 ABG O2 Saturation 95.0 % (90-100) 06/04/21 04:34 ABG Base Excess 2.2 mmol/L (-2.0-2.0) H 06/04/21 04:34 Kane Test Na 06/04/21 04:34 A-a Gradient 549.0 mmHg 06/04/21 04:34 FiO2 100.0 06/04/21 04:34 Blood Gas Comments [place] well 06/04/21 04:34 Sodium 144 mmol/L (136-145) 06/04/21 05:12 Corrected Sodium 147 mmol/L (136-145) H 06/04/21 05:12 Potassium 5.4 mmol/L (3.5-5.1) H 06/04/21 05:12 Chloride 109 mmol/L (98-107) H 06/04/21 05:12 Carbon Dioxide 30.0 mmol/L (21-32) 06/04/21 05:12 BUN 62 mg/dL (7-18) H 06/04/21 05:12 Creatinine 1.31 mg/dL (0.55-1.02) H 06/04/21 05:12 Est GFR (MDRD) Af Amer 50 (>60) L 06/04/21 05:12 Est GFR (MDRD) Non-Af 42 (>60) L 06/04/21 05:12 Glucose 237 mg/dL (65-99) H 06/04/21 05:12 POC Glucose (mg/dL) 264 mg/dL (65-99) H 06/03/21 20:17 Calcium 8.0 mg/dL (8.5-10.1) L 06/04/21 05:12 Corrected Calcium 9.8 mg/dL (8.5-10.1) 06/04/21 05:12 Magnesium 2.1 mg/dL (1.7-2.9) 05/29/21 05:37 Ferritin 1286 ng/mL (8-252) H 05/24/21 15:51 Total Bilirubin 0.50 mg/dL (0.2-1.0) 06/04/21 05:12 AST 799 Units/L (15-37) H 06/04/21 05:12 ALT 888 Units/L (12-78) H 06/04/21 05:12 Alkaline Phosphatase 86 Units/L (46-116) 06/04/21 05:12 C-Reactive Protein 52.10 mg/L (0-3.0) H 05/31/21 04:08 B-Natriuretic Peptide 95.6 pg/mL (0-79) H 05/24/21 15:51 Total Protein 5.1 g/dL (6.4-8.2) L 06/04/21 05:12 Albumin 1.8 g/dL (3.4-5.0) L 06/04/21 05:12 Globulin 3.3 g/dL (2.5-4.5) 06/04/21 05:12 Albumin/Globulin Ratio 0.5 Ratio (1.1-2.1) L 06/04/21 05:12 Specimen Type Catherized urine 05/27/21 09:35 Urine Color Yellow (YELLOW) 05/27/21 09:35 Urine Appearance Clear (CLEAR) 05/27/21 09:35 Urine pH 6.0 (5.0 - 8.0) 05/27/21 09:35 Ur Specific [place] 1.020 (1.000-1.030) 05/27/21 09:35 Urine Protein 2+ (NEGATIVE) 05/27/21 09:35 Urine Glucose (UA) 3+ (NEGATIVE) 05/27/21 09:35 Urine Ketones Negative (NEGATIVE) 05/27/21 09:35 Urine Occult Blood 2+ (NEGATIVE) 05/27/21 09:35 Urine Nitrite Negative (NEGATIVE) 05/27/21 09:35 Urine Bilirubin Negative (NEGATIVE) 05/27/21 09:35 Urine Urobilinogen Normal (NORMAL) 05/27/21 09:35 Ur Leukocyte Esterase Negative (NEGATIVE) 05/27/21 09:35 Urine RBC 0-2 /HPF (0-3) 05/27/21 09:35 Urine WBC 0-2 /HPF (0-5) 05/27/21 09:35 Ur Squamous Epith Cells Few /HPF (NEGATIVE) 05/27/21 09:35 Urine Bacteria Trace /HPF (NEGATIVE) 05/27/21 09:35 Hyaline Casts Few /LPF (NEGATIVE) 05/27/21 09:35 Ur Culture Indicated? Yes/culture set up 05/27/21 09:35 SARS CoV-2 RNA Rapid TITA Positive (NEGATIVE) A 05/24/21 17:26 Plan (1) Pneumonia due to COVID-19 virus: Status: Acute Plan: -pneumonia protocol
[2021-06-04] MEDS: LOVENOX INJ 40 MG SYR SC SCH ×2 (09:00→21:40)
[2021-06-04] MEDS ORDERED: VANCOMYCIN IV *PREMIX 1 G/200 ML BAG 1 G/200 ML PIGGYBACK IV SCH (09:00)
[2021-06-04] MEDS ORDERED: PHARMACY CONSULT - VANCOMYCIN XX SCH (09:00)
[2021-06-04] MEDS ORDERED: ZEMURON 100 MG VIAL 500 MG in NS 500 ML IV 450 ML IV PRN (13:38)
[2021-06-04] MEDS: CEREBYX IV SCH (16:18)
[2021-06-04] MEDS: NS IV SCH (16:18)
[2021-06-04] MEDS ORDERED: LOPRESSOR INJ 5 MG AMP IVP PRN (16:35)
[2021-06-04] MEDS ORDERED: LOPRESSOR INJ 5 MG AMP ONE (16:42)
[2021-06-04] MEDS: NORVASC TAB 10 MG PO SCH (21:41)
[2021-06-04] MEDS: MELATONIN PO SCH (21:41)
[2021-06-04] MEDS ORDERED: NS 500 ML IV 0 ML IV ONE (23:14)
[2021-06-05] MEDS ORDERED: NS 1000 ML 1,000 ML ONE (00:26)
[2021-06-05] MEDS ORDERED: NS 1000 ML 1,000 ML IV ONE (00:30)
[2021-06-05] MEDS: NS 1/2 1000 ML IV 1,000 ML IV SCH (01:25)
[2021-06-05 02:20] LABS: ABG BASE EXCESS -12.9 mmol/L (-2.0-2.0)
[2021-06-05] MEDS: LEVOPHED INJ 8 MG in D5W 250 ML IV 242 ML IV PRN ×2 (02:30→05:40)
[2021-06-05] MEDS ORDERED: D5W 250 ML IV 250 ML IV ONE ×2 (06:00→08:15)
--- NOTE | 2021-06-05 06:17 | RAD ---
HISTORYCOVID PNEUMONIASTUDYCHEST, 1 [id number]/15/2021.TECHNIQUEAP chest, 3 imagesFINDINGSET tube in good position. NG tube courses below the visualized field of view.The cardiac and mediastinal contours appear stable. Lungs are hyperexpanded. Interval worsening of diffuse bilateral airspace and interstitial opacities. There is blunting of the costophrenic sulci. Left worse than right apex pleural parenchymal scarring. No definite pneumothorax.IMPRESSIONBackground of emphysema. Worsening bilateral airspace and interstitial opacities consistent with worsening pneumonia.Electronically signed by: Imer Manning (Jun 05, 2021 06:15:08)
[2021-06-05 06:22] VITALS: BP 126/62
[2021-06-05] MEDS: FORTAZ or TAZICEF VIAL INJ 1 G in NS 100 ML IV + SPIKE MINIBAG* 100 ML IV SCH (06:37)
[2021-06-05] MEDS: BUTT CREAM (COMPOUND) TOP SCH (06:38)
[2021-06-05] MEDS: NYSTATIN CREAM TOP SCH (06:39)
[2021-06-05] MEDS: NYSTATIN POWDER TOP SCH (06:39)
[2021-06-05 06:41] LABS: BASOPHILS % (AUTO) 0.2 % (0.2-1.0); EOSINOPHILS % (AUTO) 0.1 % (0.9-2.9); HEMATOCRIT 40.7 % (36.0-47.0); HEMOGLOBIN 12.7 g/dL (12.0-16.0); LYMPHOCYTES # (AUTO) 1.6 X10^3/uL (1.3-2.9); LYMPHOCYTES % (AUTO) 5.1 % (21.0-51.0); MEAN CORPUSCULAR HEMOGLOBIN 30.3 pg (27.0-34.0); MEAN CORPUSCULAR HGB CONC 31.2 g/dL (33.0-35.0); MEAN CORPUSCULAR VOLUME 97.1 fL (80.0-100.0); MEAN PLATELET VOLUME 12.1 fL (7.4-11.0); MONOCYTES # (AUTO) 2.4 x10^3/uL (0.3-0.8); MONOCYTES % (AUTO) 7.7 % (0.0-13.0); NEUTROPHILS % (AUTO) 86.9 % (42.0-75.0); PLATELET COUNT 31 X10^3/uL (150.0-450.0); RED BLOOD COUNT 4.19 X10^6/uL (3.5-5.4); RED CELL DISTRIBUTION WIDTH 14.4 % (11.6-16.5)
[2021-06-05 06:53] LABS: ALBUMIN 1.3 g/dL (3.4-5.0); CALCIUM 7.2 mg/dL (8.5-10.1); COR CA(FOR HYPOALB) 9.4 mg/dL (8.5-10.1); CREATININE 2.91 mg/dL (0.55-1.02); TOTAL PROTEIN 4.2 g/dL (6.4-8.2)
[2021-06-05 07:30] LABS: BAND NEUTROPHILS % 5 % (0-10); METAMYELOCYTES % 4; MYELOCYTES % 1; PLATELET MORPHOLOGY COMMENT NORMAL (NORMAL)
[2021-06-05 07:43] LABS: CARBON DIOXIDE 11.1 mmol/L (21-32)
--- NOTE | 2021-06-05 08:17 | PCM.PROG ---
Progress Note Progress Note for Day of Date of Exam: 06/05/21 Subjective Subjective: Pt is a 76 year old female with a past medical history of Hypertension, Seizures, COPD, CAD, admitted for COVID-19 pneumonia with hypoxia. During her hospital course she had acute respiratory failure, and was intubated and placed on mechanical ventilator on (05/31/21). Pt acutely worsened overnight, with severe hypotension, and is now maxed out on Levophed gtt. Family decided on limited DNR. On rounds this morning, BP 20s-30s/15. Her ventilator settings are currently: A/C, RR 25, TV 400, PEEP 14, FiO2 100%. Her ABG this morning: pH 7.17, pCO2 41, pO2 82, HCO3 15, O2sat 92% on FiO2 100%. She is on a sedative and paralytic, Diprivan gtt, Norcuron gtt(d/c overnight). She has NGT placed. Labs/imaging: Wbc 31, Hgb 12.7, Plt 31, Na 134, K 7.0, Creatinine 2.91, Glucose 184, AST 79657, ALT 4094, ALKP 98, CXR: Background of emphysema. Worsening bilateral airspace and interstitial opacities consistent with worsening pneumonia. Pt is currently on pneumonia protocol that includes: IVF 1/2NS @80ml/h, Remdesivir(completed), IV Solumedrol 40mg(hold), scheduled Bronchodilators, Antibiotics: IV Fortaz, Levaquin, Vancomycin, immune supporting supplements, supplemental O2, SSI, I/S, Respiratory therapy consult, Pneumonia protocol. Pt now in multi-organ failure with worsening acidosis on ABG. Discussed with son worsening condition and poor prognosis. Son has decided on full DNR. Will respect family wishes at this time. Critical care time spent on clinical assessment, reviewing labs and imaging, decision making, and documentation greater than 45 minutes. Past Medical Family Social History Past Med/Fam/Surg Hx: No changes since H&P Allergies: Allergies No Known Drug Allergies Allergy (Unverified 05/24/21 15:36) Review of Systems ROS: No change since H&P Vital Signs and I&O's Vital Signs: Temperature 98.4 F Pulse Rate [Apical] 92 Pulse Rate 116 Respiratory Rate 25 Blood Pressure [Left Arm] 149/69 Blood Pressure 126/62 O2 Sat by Pulse Oximetry 76 Intake and Output: Intake & Output 06/02/21 06/03/21 06/04/21 06/05/21 23:59 23:59 23:59 23:59 Intake Total 2244 / 2244 2646 / 2646 4746 / 4746 2064 Output Total 925 / 925 525 / 525 450 / 450 0 / 0 Balance 1319 / 1319 2121 / 2121 4296 / 4296 2064 Physical Exam Oriented: Other (mechanical ventilator) Eyes: Normal Ear: Normal Nose: Normal Throat: Normal Respiratory: Diminished and Rales Cardiovascular: Normal : Normal Auscultation: Bowel Sounds: Normal Tenderness: Normal Skin: Normal Musculoskeletal: Normal Psychiatric: Other Mood Description: Calm and Appropriate Affect: Normal Speech Pattern: Artificially Ventilated Laboratory and Diagnostics Result Diagrams: 06/05/21 05:42 06/05/21 05:42 Labs: 05/27/21 09:35 Urine,Clean Catch Urine Culture - Final Laboratory WBC 31.0 X10^3/uL (3.6-10.0) H* D 06/05/21 05:42 RBC 4.19 X10^6/uL (3.5-5.4) 06/05/21 05:42 Hgb 12.7 g/dL (12.0-16.0) 06/05/21 05:42 Hct 40.7 % (36.0-47.0) 06/05/21 05:42 MCV 97.1 fL (80.0-100.0) 06/05/21 05:42 MCH 30.3 pg (27.0-34.0) 06/05/21 05:42 MCHC 31.2 g/dL (33.0-35.0) L 06/05/21 05:42 RDW 14.4 % (11.6-16.5) 06/05/21 05:42 Plt Count 31 X10^3/uL (150.0-450.0) L 06/05/21 05:42 Plt Count Comment Decreased (ADEQUATE) A 06/05/21 05:42 MPV 12.1 fL (7.4-11.0) H 06/05/21 05:42 Neut % (Auto) 86.9 % (42.0-75.0) H 06/05/21 05:42 Lymph % (Auto) 5.1 % (21.0-51.0) L 06/05/21 05:42 [place] % (Auto) 7.7 % (0.0-13.0) 06/05/21 05:42 Eos % (Auto) 0.1 % (0.9-2.9) L 06/05/21 05:42 Baso % (Auto) 0.2 % (0.2-1.0) 06/05/21 05:42 Neut # (Auto) 27.0 x10^3/uL (2.2-4.8) H 06/05/21 05:42 Lymph # (Auto) 1.6 X10^3/uL (1.3-2.9) 06/05/21 05:42 [place] # (Auto) 2.4 x10^3/uL (0.3-0.8) H 06/05/21 05:42 Eos # (Auto) 0.0 x10^3/uL (0.0-0.2) 06/05/21 05:42 Baso # (Auto) 0.0 X10^3/uL (0.0-0.1) 06/05/21 05:42 Absolute Nucleated RBC 1.3 /100WBC 06/05/21 05:42 Total Counted 100 06/05/21 05:42 Neutrophils % (Manual) 78 % (39-76) H 06/05/21 05:42 Band Neutrophils % 5 % (0-10) 06/05/21 05:42 Lymphocytes % (Manual) 10 % (13-43) L 06/05/21 05:42 Monocytes % (Manual) 2 % (4-9) L 06/05/21 05:42 Eosinophils % (Manual) Cancelled 05/31/21 04:08 Basophils % (Manual) Cancelled 05/31/21 04:08 Metamyelocytes % 4 06/05/21 05:42 Myelocytes % 1 06/05/21 05:42 Promyelocytes % Cancelled 05/31/21 04:08 Nucleated RBCs Cancelled 05/31/21 04:08 Atypical Lymphocytes Cancelled 05/31/21 04:08 Blast Cells Cancelled 05/31/21 04:08 Smudge Cells Cancelled 05/31/21 04:08 Toxic Granulation Cancelled 05/31/21 04:08 Dohle Bodies Cancelled 05/31/21 04:08 Jose Rods Cancelled 05/31/21 04:08 Plt Clumps, EDTA Cancelled 05/31/21 04:08 Giant Platelets Cancelled 05/31/21 04:08 Plt Morphology Comment Normal (NORMAL) 06/05/21 05:42 RBC Morphology Normal (NORMAL) 06/05/21 05:42 Dimorphic RBCs Cancelled 05/31/21 04:08 Polychromasia Cancelled 05/31/21 04:08 Hypochromasia Cancelled 05/31/21 04:08 Poikilocytosis Cancelled 05/31/21 04:08 Basophilic Stippling Cancelled 05/31/21 04:08 Anisocytosis Cancelled 05/31/21 04:08 Microcytosis Cancelled 05/31/21 04:08 Macrocytosis Cancelled 05/31/21 04:08 Spherocytes Cancelled 05/31/21 04:08 Pappenheimer Bodies Cancelled 05/31/21 04:08 Sickle Cells Cancelled 05/31/21 04:08 Target Cells Cancelled 05/31/21 04:08 Tear Drop Cells Cancelled 05/31/21 04:08 Ovalocytes Cancelled 05/31/21 04:08 Stomatocytes Cancelled 05/31/21 04:08 Helmet Cells Cancelled 05/31/21 04:08 [place] Bodies Cancelled 05/31/21 04:08 [place] Rings Cancelled 05/31/21 04:08 [place] Cells Cancelled 05/31/21 04:08 Crenated Cell Cancelled 05/31/21 04:08 Acanthocytes (Spur) Cancelled 05/31/21 04:08 Rouleaux Cancelled 05/31/21 04:08 Schistocytes Cancelled 05/31/21 04:08 D-Dimer 1.92 ug/ml (0.0-0.57) H* 05/24/21 15:51 Sample Site Art line 06/05/21 02:18 ABG pH 7.170 (7.35-7.45) L* 06/05/21 02:18 ABG pCO2 41.0 mmHg (35.0-45.0) 06/05/21 02:18 ABG pO2 82.0 mmHg (80.0-100.0) 06/05/21 02:18 ABG HCO3 15.0 mmol/L (22-26) L* 06/05/21 02:18 ABG O2 Saturation 92.0 % (90-100) 06/05/21 02:18 ABG Base Excess -12.9 mmol/L (-2.0-2.0) L 06/05/21 02:18 [place] Test N/a 06/05/21 02:18 A-a Gradient 580.0 mmHg 06/05/21 02:18 FiO2 100.0 06/05/21 02:18 Blood Gas Comments [place] well mts 06/05/21 02:18 Sodium 134 mmol/L (136-145) L 06/05/21 05:42 Corrected Sodium 136 mmol/L (136-145) 06/05/21 05:42 Potassium 7.0 mmol/L (3.5-5.1) H* 06/05/21 05:42 Chloride 101 mmol/L (98-107) 06/05/21 05:42 Carbon Dioxide 11.1 mmol/L (21-32) L* 06/05/21 05:42 BUN 83 mg/dL (7-18) H 06/05/21 05:42 Creatinine 2.91 mg/dL (0.55-1.02) H 06/05/21 05:42 Est GFR (MDRD) Af Amer 20 (>60) L 06/05/21 05:42 Est GFR (MDRD) Non-Af 17 (>60) L 06/05/21 05:42 Glucose 184 mg/dL (65-99) H 06/05/21 05:42 POC Glucose (mg/dL) 219 mg/dL (65-99) H 06/04/21 23:43 Calcium 7.2 mg/dL (8.5-10.1) L 06/05/21 05:42 Corrected Calcium 9.4 mg/dL (8.5-10.1) 06/05/21 05:42 Magnesium 2.1 mg/dL (1.7-2.9) 05/29/21 05:37 Ferritin 1286 ng/mL (8-252) H 05/24/21 15:51 Total Bilirubin 1.20 mg/dL (0.2-1.0) H 06/05/21 05:42 AST 81272 Units/L (15-37) H 06/05/21 05:42 ALT 4094 Units/L (12-78) H 06/05/21 05:42 Alkaline Phosphatase 98 Units/L (46-116) 06/05/21 05:42 C-Reactive Protein 52.10 mg/L (0-3.0) H 05/31/21 04:08 B-Natriuretic Peptide 95.6 pg/mL (0-79) H 05/24/21 15:51 Total Protein 4.2 g/dL (6.4-8.2) L 06/05/21 05:42 Albumin 1.3 g/dL (3.4-5.0) L 06/05/21 05:42 Globulin 2.9 g/dL (2.5-4.5) 06/05/21 05:42 Albumin/Globulin Ratio 0.4 Ratio (1.1-2.1) L 06/05/21 05:42 Specimen Type Catherized urine 05/27/21 09:35 Urine Color Yellow (YELLOW) 05/27/21 09:35 Urine Appearance Clear (CLEAR) 05/27/21 09:35 Urine pH 6.0 (5.0 - 8.0) 05/27/21 09:35 Ur Specific [place] 1.020 (1.000-1.030) 05/27/21 09:35 Urine Protein 2+ (NEGATIVE) 05/27/21 09:35 Urine Glucose (UA) 3+ (NEGATIVE) 05/27/21 09:35 Urine Ketones Negative (NEGATIVE) 05/27/21 09:35 Urine Occult Blood 2+ (NEGATIVE) 05/27/21 09:35 Urine Nitrite Negative (NEGATIVE) 05/27/21 09:35 Urine Bilirubin Negative (NEGATIVE) 05/27/21 09:35 Urine Urobilinogen Normal (NORMAL) 05/27/21 09:35 Ur Leukocyte Esterase Negative (NEGATIVE) 05/27/21 09:35 Urine RBC 0-2 /HPF (0-3) 05/27/21 09:35 Urine WBC 0-2 /HPF (0-5) 05/27/21 09:35 Ur Squamous Epith Cells Few /HPF (NEGATIVE) 05/27/21 09:35 Urine Bacteria Trace /HPF (NEGATIVE) 05/27/21 09:35 Hyaline Casts Few /LPF (NEGATIVE) 05/27/21 09:35 Ur Culture Indicated? Yes/culture set up 05/27/21 09:35 SARS CoV-2 RNA Rapid TITA Positive (NEGATIVE) A 05/24/21 17:26 Plan (1) Pneumonia due to COVID-19 virus: Status: Acute Plan: -pneumonia protocol
[2021-06-05] MEDS: BROVANA IN SCH (09:21)
[2021-06-05] MEDS: PULMICORT NEB TX 0.5 MG NEB SCH (09:22)
--- NOTE | 2021-06-05 12:52 | DR.DECEASE ---
FORM Date of Admission Date of Admission: 05/24/21 Admission Diagnosis Current Active Problems Problem Status Onset Sepsis Bilateral pneumonia Hypoxia Hypokalemia COVID-19 Discharge Diagnosis Problems (Updated 05/25/21 @ 23:56 by Lazaro Rossi) Pneumonia due to COVID-19 virus (Acute) U07.1, J12.82 Sepsis (Acute) A41.9 Bilateral pneumonia (Acute) J18.9 Hypoxia (Acute) R09.02 Hypokalemia (Acute) E87.6 COVID-19 (Acute) U07.1 Labs Result Diagrams: 06/05/21 05:42 06/05/21 05:42 Home Medications Home Medications Medication Instructions Recorded Type amlodipine [Norvasc] 10 mg PO HS 05/24/21 History ascorbic acid (vitamin C) [Vitamin 250 mg PO DAILY 05/24/21 History C] aspirin [Ecotrin] 325 mg PO BID 05/24/21 History cholecalciferol (vitamin D3) 125 mcg PO DAILY 05/24/21 History [Vitamin D3] cyanocobalamin (vitamin B-12) 500 mcg PO DAILY 05/24/21 History [Vitamin B-12] famotidine [Pepcid] 40 mg PO BID 05/24/21 History hydrochlorothiazide 25 mg PO QAM 05/24/21 History meclizine 25 mg PO BID 05/24/21 History phenytoin sodium extended 300 mg PO QHS 05/24/21 History [Dilantin Extended] zinc sulfate 50 mg PO BID 05/24/21 History Hospital Course Hospital Course: See progress note. Expiration Expiration Date: 06/05/21 Expiration Time: 09:44 Pronounced by: DR. MELLO Preliminary Cause of : CARDIO-PULMONARY ARREST
[2021-06-07] MEDS ORDERED: PHARMACY COMMENT IV ONE (08:30)
== END 2021-06-05 11:40 | disposition expired | DRG 870 ==
LOC: ER 14:52 → OBS 20:43 → MED/SURG 22:55 → ICU 05-30 16:15
PROVIDERS: ADMIT Family Medicine; ATTEND Family Medicine
DX: J96.01 Acute respiratory failure with hypoxia; E87.6 Hypokalemia; R79.89 Other specified abnormal findings of blood chemistry; I87.2 Venous insufficiency (chronic) (peripheral); R06.02 Shortness of breath; I25.10 Atherosclerotic heart disease of native coronary artery without angina pectoris; I95.89 Other hypotension; A31.8 Other mycobacterial infections; I10 Essential (primary) hypertension; A41.89 Other specified sepsis; R73.09 Other abnormal glucose; I46.8 Cardiac arrest due to other underlying condition; R79.82 Elevated C-reactive protein (CRP); R26.89 Other abnormalities of gait and mobility; Z66 Do not resuscitate; U07.1 COVID-19